=== PATIENT | male | born 1940 | race Hispanic/Latino ===

== ENCOUNTER 2019-09-24 13:31 | Emergency (ER) | payer MEDICARE ==
--- NOTE | 2019-09-24 14:19 | Event Note ---
ED Screening Note Date of service: 09/24/19 Time: 14:18 ED Screening Note: 79 y/o male comes in for dyspnea. Hx/o COPD. Still smoking. This initial assessment/diagnostic orders/clinical plan/treatment(s) is/are subject to change based on patients health status, clinical progression and re-assessment by fellow clinical providers in the ED. Further treatment and workup at subsequent clinical providers discretion. Patient/guardian urged not to elope from the ED as their condition may be serious if not clinically assessed and managed. Initial orders include:
--- NOTE | 2019-09-24 15:15 | XRay Report ---
CHEST 2 VIEWS INDICATION / CLINICAL INFORMATION: dyspnea. COMPARISON: Chest x-ray 09/25/2017 FINDINGS: SUPPORT DEVICES: None. HEART / MEDIASTINUM: No significant abnormality. LUNGS / PLEURA: Stable hyperexpansion without focal consolidation or pleural effusion. No pneumothora x. ADDITIONAL FINDINGS: No significant additional findings. IMPRESSION: 1. No acute findings. Signer Name: Deo Becker MD Signed: 09/24/2019 3:10 PM Workstation Name: [id number]
[2019-09-24 16:56] VITALS: BP 134/85
--- NOTE | 2019-09-24 17:03 | Emergency Department Report ---
- General Chief Complaint: Dyspnea/Respdistress Stated Complaint: CONGESTED/FEVER/JOEY Time Seen by Provider: 09/24/19 14:18 Source: patient Mode of arrival: Ambulatory Limitations: No Limitations - History of Present Illness Initial Comments: Patient is a 79-year-old male who has a history of COPD who has had a productive cough for the last 2 weeks. Patient's states that his primary care physician on his last visit did not refill his medications for his nebulizer machine. Patient was seen by his primary care physician was not given antibiotics. Patient's family member states that the patient's had fevers for the last 2 days. Cough is productive of clear to yellow sputum. Patient 7 difficult time resting secondary to the cough. Family denies nausea vomiting diarrhea next if sore throat. - Related Data Previous Rx's Medication Instructions Recorded Last Taken Type Budesonide [Pulmicort Respules] 0.5 mg IH Q12HRT 30 Days nebu 09/27/17 Unknown Rx HYDROcodone/APAP 5-325 [[place] 2 each PO Q6H PRN #10 tablet 09/27/17 Unknown Rx 5-325 mg TAB] Meclizine [Antivert] 25 mg PO TID PRN tablet 09/27/17 Unknown Rx Prednisone [predniSONE 10 mg 10 mg PO .TAPER #1 tab.ds.pk 09/27/17 Unknown Rx (6-Day Pack, 21 Tabs)] Verapamil ER [Calan SR] 180 mg PO QDAY #30 tablet 09/27/17 Unknown Rx levoFLOXacin [Levaquin TAB] 750 mg PO Q48HR 7 Days tablet 09/27/17 Unknown Rx ALBUTEROL Inhaler (OR & NICU) 2 puff IH QID PRN #1 inhalation 09/24/19 Unknown Rx [ProAir HFA Inhaler] ALBUTEROL NEB's [Proventil 0.083% 2.5 mg IH TID PRN #20 neb 09/24/19 Unknown Rx NEBS] DOXYCYCLINE Hyclate [Vibramycin 100 mg PO Q12HR #14 capsule 09/24/19 Unknown Rx CAP] guaiFENesin/CODEINE [Robitussin AC] 5 ml PO Q6HR PRN #100 oral.liqd 09/24/19 Unknown Rx predniSONE [Deltasone] 20 mg PO QDAY #5 tab 09/24/19 Unknown Rx Allergies Allergy/AdvReac Type Severity Reaction Status Date / Time acetaminophen AdvReac Nausea Verified 09/01/13 11:52 [From Darvocet-N 100] ibuprofen [From Motrin] AdvReac Nausea Verified 09/01/13 11:52 propoxyphene napsylate AdvReac Nausea Verified 09/01/13 11:52 [From Darvocet-N 100] tramadol AdvReac Nausea Verified 09/01/13 11:52 ED Review of Systems ROS: Stated complaint: CONGESTED/FEVER/JOEY Other details as noted in HPI Comment: All other systems reviewed and negative ED Past Medical Hx - Past Medical History Previous Medical History?: Yes Hx Hypertension: Yes Hx Heart Attack/AMI: Yes Hx COPD: Yes Hx HIV: No Additional medical history: coronary artery disease,concusion 2017 - Surgical History Past Surgical History?: Yes Hx Coronary Stent: Yes Additional Surgical History: angioplasty. stent in neck. carotidendarterectomy - Social History Smoking Status: Current Every Day Smoker Substance Use Type: None - Medications Home Medications: Home Medications Medication Instructions Recorded Confirmed Last Taken Type Budesonide [Pulmicort Respules] 0.5 mg IH Q12HRT 30 Days nebu 09/27/17 Unknown Rx HYDROcodone/APAP 5-325 [[place] 2 each PO Q6H PRN #10 tablet 09/27/17 Unknown Rx 5-325 mg TAB] Meclizine [Antivert] 25 mg PO TID PRN tablet 09/27/17 Unknown Rx Prednisone [predniSONE 10 mg 10 mg PO .TAPER #1 tab.ds.pk 09/27/17 Unknown Rx (6-Day Pack, 21 Tabs)] Verapamil ER [Calan SR] 180 mg PO QDAY #30 tablet 09/27/17 Unknown Rx levoFLOXacin [Levaquin TAB] 750 mg PO Q48HR 7 Days tablet 09/27/17 Unknown Rx ALBUTEROL Inhaler (OR & NICU) 2 puff IH QID PRN #1 inhalation 09/24/19 Unknown Rx [ProAir HFA Inhaler] ALBUTEROL NEB's [Proventil 0.083% 2.5 mg IH TID PRN #20 neb 09/24/19 Unknown Rx NEBS] DOXYCYCLINE Hyclate [Vibramycin 100 mg PO Q12HR #14 capsule 09/24/19 Unknown Rx CAP] guaiFENesin/CODEINE [Robitussin AC] 5 ml PO Q6HR PRN #100 oral.liqd 09/24/19 Unknown Rx predniSONE [Deltasone] 20 mg PO QDAY #5 tab 09/24/19 Unknown Rx ED Physical Exam - General Limitations: No Limitations General appearance: alert, in no apparent distress - Head Head exam: Present: atraumatic, normocephalic - Eye Eye exam: Present: normal appearance - ENT ENT exam: Present: mucous membranes moist - Neck Neck exam: Present: normal inspection - Respiratory Respiratory exam: Present: rhonchi. Absent: normal lung sounds bilaterally, respiratory distress, wheezes, rales, stridor - Cardiovascular Cardiovascular Exam: Present: regular rate, normal rhythm, normal heart sounds. Absent: systolic murmur, diastolic murmur, rubs, gallop - GI/Abdominal GI/Abdominal exam: Present: soft, normal bowel sounds. Absent: distended, tenderness, guarding, rebound - Rectal Rectal exam: Present: deferred - Extremities Exam Extremities exam: Present: normal inspection - Back Exam Back exam: Present: normal inspection - Neurological Exam Neurological exam: Present: alert, oriented X3 - Psychiatric Psychiatric exam: Present: normal affect, normal mood - Skin Skin exam: Present: warm, dry, intact, normal color. Absent: rash ED Course Vital Signs 09/24/19 09/24/19 13:35 16:56 Temperature 97.8 F 98.8 F Pulse Rate 67 69 Respiratory 19 18 Rate Blood Pressure 141/89 Blood Pressure 134/85 [Left] O2 Sat by Pulse 97 98 Oximetry ED Medical Decision Making - Radiology Data CHEST 2 VIEWS INDICATION / CLINICAL INFORMATION: dyspnea. COMPARISON: Chest x-ray 09/25/2017 FINDINGS: SUPPORT DEVICES: None. HEART / MEDIASTINUM: No significant abnormality. LUNGS / PLEURA: Stable hyperexpansion without focal consolidation or pleural effusion. No pneumothorax. ADDITIONAL FINDINGS: No significant additional findings. IMPRESSION: 1. No acute findings. Signer Name: Deo Becker MD Signed: 09/24/2019 3:10 PM Workstation Name: [id number] - Medical Decision Making Patient is a 79-year-old male with a history of COPD. Patient has had a productive cough for over 2 weeks as well as subjective fevers. Patient be started on doxycycline the patient also have his inhaler and nebulizers medications refilled. Patient started on a short course of antibiotics. Critical care attestation.: If time is entered above; I have spent that time in minutes in the direct care of this critically ill patient, excluding procedure time. ED Disposition Clinical Impression: Acute exacerbation of chronic bronchitis Disposition: TO HOME OR SELFCARE Is pt being admited?: No Does the pt Need Aspirin: No Condition: Stable Instructions: Chronic Bronchitis (ED) Referrals: PRIMARY CARE, [Primary Care Provider] - 3-5 Days Time of Disposition: 17:02
== END 2019-09-24 17:23 | disposition home or self-care (01) ==
LOC: ED 13:31
DX: J42 Unspecified chronic bronchitis (principal); I10 Essential (primary) hypertension; I25.2 Old myocardial infarction; I25.10 Atherosclerotic heart disease of native coronary artery without angina pectoris; F17.200 Nicotine dependence, unspecified, uncomplicated; Z95.5 Presence of coronary angioplasty implant and graft; Z79.899 Other long term (current) drug therapy; Z88.8 Allergy status to other drugs, medicaments and biological substances
CPT/HCPCS: 71046

== ENCOUNTER 2019-11-17 16:40 | Emergency (ER) | payer MEDICARE ==
[2019-11-17] MEDS ORDERED: methylPREDNISolone Sod Succinate 125 MG/2 ML INJ IV ONE ×2 (17:45→22:08)
[2019-11-17] MEDS ORDERED: ALBUTEROL 2.5 MG/3 ML NEBU IH ONE ×2 (17:45→20:50)
[2019-11-17] MEDS ORDERED: IPRATROPIUM 0.02% NEBU 2.5 ML IH ONE ×2 (17:45→20:50)
--- NOTE | 2019-11-17 17:45 | Event Note ---
ED Screening Note ED Screening Note: pt presents for productive cough 4-5 days +chest congestion +subjective fever, states it was 101 rhinorrhea +sob PMHx COPD, HTN still smoking This initial assessment/diagnostic orders/clinical plan/treatment(s) is/are subject to change based on patients health status, clinical progression and re-assessment by fellow clinical providers in the ED. Further treatment and workup at subsequent clinical providers discretion. Patient/guardian urged not to elope from the ED as their condition may be serious if not clinically assessed and managed. Initial orders include: CXR, labs, neb tx, steroids
--- NOTE | 2019-11-17 18:07 | XRay Report ---
CHEST 2 VIEWS INDICATION / CLINICAL INFORMATION: productive cough, fever, sob. COMPARISON: Chest x-ray 09/24/2019 FINDINGS: SUPPORT DEVICES: None. HEART / MEDIASTINUM: No significant abnormality. LUNGS / PLEURA: Moderate COPD, unchanged. No significant pulmonary or pleural abnormality. No pneumot horax. ADDITIONAL FINDINGS: No significant additional findings. IMPRESSION: 1. No acute findings. Signer Name: Isreal Kincaid MD Signed: 11/17/2019 6:03 PM Workstation Name: [id number]
[2019-11-17 18:41] LABS: Hematocrit 44.3 % (35.5-45.6); Hemoglobin 15.1 gm/dl (11.8-15.2); Mean Corpuscular HGB Conc 34 % (32-34); Mean Corpuscular Volume 89 fl (84-94); Platelet Count 212 K/mm3 (140-440)
[2019-11-17 19:06] LABS: Albumin 4.2 g/dL (3.9-5)
[2019-11-17 20:46] VITALS: BP 115/80
[2019-11-17] MEDS ORDERED: methylPREDNISolone Sod Succinate 125 MG/2 ML INJ ONE (20:50)
[2019-11-17] MEDS ORDERED: FUROSEMIDE 20 MG/2 ML INJ IV ONE (22:08)
[2019-11-17 22:10] LABS: Eosinophils % (Manual) 0 % (0.0-4.3); RBC Morphology Normal; Total Cells Counted 100
[2019-11-17 22:11] LABS: Platelet Estimate Consistent w Auto
--- NOTE | 2019-11-17 22:18 | Emergency Department Report ---
HPI - General Chief Complaint: Upper Respiratory Infection Time Seen by Provider: 11/17/19 17:42 - HPI HPI: 79-year-old male presents to the emergency department with complaint of a 4 to five-day history of a cough, chest congestion, subjective fever and some shortness of breath. Patient has a past medical history of COPD, coronary artery disease, carotid stenosis, hypertension. He is a tobacco smoker. He is not oxygen dependent at home. He has a primary care physician but has not seen them regarding his symptoms. No recent travel or sick contacts at home. He denies any chest pain, lower extremity swelling, nausea, vomiting or diaph oresis. Patient has been using some nebulizer treatments at home with some transient relief. ED Past Medical Hx - Past Medical History Previous Medical History?: Yes Hx Hypertension: Yes Hx Heart Attack/AMI: Yes Hx COPD: Yes Hx HIV: No Additional medical history: coronary artery disease,concusion 2016 - Surgical History Past Surgical History?: Yes Hx Coronary Stent: Yes Additional Surgical History: angioplasty. stent in neck. carotidendarterectomy - Social History Smoking Status: Current Every Day Smoker Substance Use Type: None - Medications Home Medications: Home Medications Medication Instructions Recorded Confirmed Last Taken Type Budesonide [Pulmicort Respules] 0.5 mg IH Q12HRT 30 Days nebu 09/27/17 Unknown Rx HYDROcodone/APAP 5-325 [[place] 2 each PO Q6H PRN #10 tablet 09/27/17 Unknown Rx 5-325 mg TAB] Meclizine [Antivert] 25 mg PO TID PRN tablet 09/27/17 Unknown Rx Prednisone [predniSONE 10 mg 10 mg PO .TAPER #1 tab.ds.pk 09/27/17 Unknown Rx (6-Day Pack, 21 Tabs)] Verapamil ER [Calan SR] 180 mg PO QDAY #30 tablet 09/27/17 Unknown Rx levoFLOXacin [Levaquin TAB] 750 mg PO Q48HR 7 Days tablet 09/27/17 Unknown Rx DOXYCYCLINE Hyclate [Vibramycin 100 mg PO Q12HR #14 capsule 09/24/19 Unknown Rx CAP] guaiFENesin/CODEINE [Robitussin AC] 5 ml PO Q6HR PRN #100 oral.liqd 09/24/19 Unknown Rx ALBUTEROL NEB's [Proventil 0.083% 2.5 mg IH TID PRN #20 neb 11/17/19 Unknown Rx NEBS] Albuterol INH(or & Nicu Only) 2 puff IH QID PRN #1 inhalation 11/17/19 Unknown Rx [ProAir HFA Inhaler] predniSONE [Deltasone] 20 mg PO QDAY #4 tab 11/17/19 Unknown Rx ED Review of Systems ROS: Stated complaint: FEVER,CONGESTION,COUGH,SINUS Other details as noted in HPI Comment: All other systems reviewed and negative Constitutional: denies: chills, fever Eyes: denies: eye pain, vision change ENT: congestion. denies: ear pain, throat pain Respiratory: cough, shortness of breath Cardiovascular: denies: chest pain, edema Gastrointestinal: denies: abdominal pain, vomiting Genitourinary: denies: dysuria, discharge Musculoskeletal: denies: back pain, arthralgia Skin: denies: rash, lesions Neurological: denies: headache, weakness Physical Exam - Physical Exam Vital Signs: Vital Signs 11/17/19 11/17/19 11/17/19 17:43 20:44 20:52 Temperature 99.8 F H 99 F Pulse Rate 81 85 Pulse Rate [ 88 Throughout] Respiratory 20 20 Rate Respiratory 22 Rate [ Throughout] Blood Pressure 153/87 Blood Pressure 115/80 [Right] O2 Sat by Pulse 93 92 Oximetry Physical Exam: GENERAL: The patient is well-developed well-nourished. HEENT: Normocephalic. Atraumatic. Patient has moist mucous membranes. EYES: Extraocular motions are intact. NECK: Supple. Trachea is midline. CHEST/LUNGS: There is some wheezing throughout the chest. No tachypnea or accessory muscle use. There is no respiratory distress noted. HEART/CARDIOVASCULAR: Regular. There is no tachycardia. There is no murmur. ABDOMEN: Abdomen is soft, nontender. Patient has normal bowel sounds. There is no abdominal distention. SKIN:Skin is warm and dry. . NEURO: The patient is awake, alert, and oriented. The patient is cooperative. The patient has no focal neurologic deficits. Normal speech. MUSCULOSKELETAL: There is no tenderness or deformity. There is no limitation range of motion. There is no evidence of acute injury. ED Course Vital Signs 11/17/19 11/17/19 11/17/19 17:43 20:44 20:52 Temperature 99.8 F H 99 F Pulse Rate 81 85 Pulse Rate [ 88 Throughout] Respiratory 20 20 Rate Respiratory 22 Rate [ Throughout] Blood Pressure 153/87 Blood Pressure 115/80 [Right] O2 Sat by Pulse 93 92 Oximetry ED Medical Decision Making - Lab Data Result diagrams: 11/17/19 18:01 11/17/19 18:01 - Radiology Data Radiology results: image reviewed interpreted by me: Chest x-ray does not show any pleural effusions, pneumonia, pneumothorax, focal consolidation, or any other acute process. - Medical Decision Making This patient presents to the emergency department with a 4 to five-day history of some shortness of breath, coughing, wheezing. He does have a history of COPD. Subjective fever but afebrile here. Chest x-ray does not show any pneumonia, pleural effusions, pneumothorax, focal consolidation, or any other acute process. The patient's labs are mostly unremarkable except for a elevated BNP level. The patient does not have any history of congestive heart failure. Chest x-ray did not show any pleural effusions and the patient does not have any lower extremity swelling. However, for this abnormal lab, the patient's information has been sent over to [facility] cardiology for close outpatient follow-up. I believe it may be elevated secondary to his history of abdominal aortic aneurysm. Most of his symptoms appear consistent with a viral URI, bronchitis, or an exacerbation of his COPD. The patient is not in any respiratory distress and appears safe for discharge home at this time. He will be given an albuterol inhaler, a refill of his nebulizer medication, and a few days of steroids. The patient is also been instructed to follow-up with his primary care physician and to return to the emergency Department with any worsening of his symptoms or any acute distress. - Differential Diagnosis COPD, CHF, pneumonia, influenza, viral URI Critical Care Time: No Critical care attestation.: If time is entered above; I have spent that time in minutes in the direct care of this critically ill patient, excluding procedure time. ED Disposition Clinical Impression: COPD exacerbation, Viral URI Disposition: OP ADMIT IP TO THIS HOSP Is pt being admited?: Yes Condition: Stable Instructions: Upper Respiratory Infection (ED), Chronic Obstructive Pulmonary Disease (ED) Additional Instructions: Please follow up with your primary care physician in the next 2 days. Return to the emergency Department with any worsening of your symptoms or any acute distress. I have sent your contact information over to [facility] heart cardiology and somewhat should be contacting you shortly for close outpatient follow-up. Prescriptions: predniSONE [Deltasone] 20 mg PO QDAY #4 tab Albuterol INH(or & Nicu Only) [ProAir HFA Inhaler] 2 puff IH QID PRN #1 inhalation PRN Reason: Shortness Of Breath ALBUTEROL NEB's [Proventil 0.083% NEBS] 2.5 mg IH TID PRN #20 neb PRN Reason: Wheezing Referrals: PRIMARY CARE, [Referring] - 2-3 Days [facility] [Provider Group] - 3-5 Days Time of Disposition: 22:28
== END 2019-11-17 22:40 | disposition admitted as inpatient to this hospital (09) ==
LOC: ED 16:40
DX: J44.1 Chronic obstructive pulmonary disease with (acute) exacerbation (principal); J06.9 Acute upper respiratory infection, unspecified; I10 Essential (primary) hypertension; I25.2 Old myocardial infarction; F17.200 Nicotine dependence, unspecified, uncomplicated; Z95.5 Presence of coronary angioplasty implant and graft; Z79.899 Other long term (current) drug therapy; Z88.8 Allergy status to other drugs, medicaments and biological substances
CPT/HCPCS: 36415; 71046; 80053; 83880; 85007; 85025; 94640; 96374; 99283; J2930; 94644

== ENCOUNTER 2022-01-17 19:21 | Emergency (ER) | payer MEDICARE ==
--- NOTE | 2022-01-17 21:18 | XRay Report ---
CHEST 2 VIEWS INDICATION / CLINICAL INFORMATION: chest pain. COMPARISON: 11/17/2019 FINDINGS: SUPPORT DEVICES: None. HEART / MEDIASTINUM: No significant abnormality. LUNGS / PLEURA: Lungs are hyperexpanded. Mild interstitial edema. There is a small opacity in the rig ht upper lobe overlying the right posterior sixth rib. No pneumothorax. ADDITIONAL FINDINGS: No significant additional findings. IMPRESSION: 1. Small opacity in the right upper lobe is nonspecific. A nonemergent chest CT can be performed for further evaluation. 2. Mild interstitial edema. 3. COPD. Signer Name: Deon Thomas MD Signed: 01/17/2022 9:14 PM Workstation Name: [id number]
[2022-01-17 21:55] LABS: Hematocrit 44.6 % (35.5-45.6); Hemoglobin 14.6 gm/dl (11.8-15.2); Mean Corpuscular HGB Conc 33 % (32-34); Mean Corpuscular Volume 89 fl (84-94); Platelet Count 298 K/mm3 (140-440); Red Cell Distribution Width 13.3 % (13.2-15.2)
[2022-01-17 22:22] LABS: INR 0.97 (0.87-1.13)
[2022-01-17 22:23] LABS: Partial Thromboplastin Time 33.5 Sec. (24.2-36.6)
[2022-01-17 22:28] LABS: Alanine Aminotransferase 7 units/L (7-56); Albumin 4.2 g/dL (3.9-5); BUN/Creatinine Ratio 12; Blood Urea Nitrogen 16 mg/dL (9-20); Calcium 8.8 mg/dL (8.4-10.2); Hemolysis Index 33
--- NOTE | 2022-01-17 23:09 | Emergency Department Report ---
ED General Adult HPI - General Chief complaint: Chest Pain Stated complaint: COLD SX Time Seen by Provider: 01/17/22 22:48 Source: patient Mode of arrival: Ambulatory Limitations: No Limitations - History of Present Illness Initial comments: Patient is 81 years old male with history of hypertension. Patient presented to the ER complaining of cold like symptoms. Patient stated that for the last 4 days he started to have runny nose cough and congestion. Patient stated that he started having some chest pain when he started coughing. He describes chest pain as sharp, diffuse. Patient stated that the chest pain is only, when he started coughing. Patient denied any tightness in his chest. He also denied any fever or chills. No shortness of breath. Patient stated that he is vaccinated for Covid x3 shots. -: days(s) (4) Location: chest Severity scale (0 -10): 3 Quality: sharp Consistency: intermittent Improves with: cold therapy Associated Symptoms: denies other symptoms, chest pain, cough - Related Data Previous Rx's Medication Instructions Recorded Last Taken Type Budesonide [Pulmicort Respules] 0.5 mg IH Q12HRT 30 Days nebu 09/27/17 Unknown Rx HYDROcodone/APAP 5-325 [[place] 2 each PO Q6H PRN #10 tablet 09/27/17 Unknown Rx 5-325 mg TAB] Meclizine [Antivert] 25 mg PO TID PRN tablet 09/27/17 Unknown Rx Prednisone [predniSONE 10 mg 10 mg PO .TAPER #1 tab.ds.pk 09/27/17 Unknown Rx (6-Day Pack, 21 Tabs)] Verapamil ER [Calan SR] 180 mg PO QDAY #30 tablet 09/27/17 Unknown Rx levoFLOXacin [Levaquin TAB] 750 mg PO Q48HR 7 Days tablet 09/27/17 Unknown Rx DOXYCYCLINE Hyclate [Vibramycin 100 mg PO Q12HR #14 capsule 09/24/19 Unknown Rx CAP] guaiFENesin/CODEINE [Robitussin AC] 5 ml PO Q6HR PRN #100 oral.liqd 09/24/19 Unknown Rx ALBUTEROL NEB's [Proventil 0.083% 2.5 mg IH TID PRN #20 neb 11/17/19 Unknown Rx NEBS] Albuterol Mdi (or & Nicu Only) 2 puff IH QID PRN #1 inhalation 11/17/19 Unknown Rx [ProAir HFA Inhaler] predniSONE [Deltasone] 20 mg PO QDAY #4 tab 11/17/19 Unknown Rx Allergies Allergy/AdvReac Type Severity Reaction Status Date / Time acetaminophen AdvReac Nausea Verified 01/17/22 20:27 [From Darvocet-N 100] ibuprofen [From Motrin] AdvReac Nausea Verified 01/17/22 20:27 propoxyphene napsylate AdvReac Nausea Verified 01/17/22 20:27 [From Darvocet-N 100] tramadol AdvReac Nausea Verified 01/17/22 20:27 ED Review of Systems ROS: Stated complaint: COLD SX Other details as noted in HPI Comment: All other systems reviewed and negative Constitutional: denies: chills, fever ENT: congestion Respiratory: cough. denies: orthopnea, shortness of breath, SOB with exertion, SOB at rest, stridor, wheezing Cardiovascular: chest pain. denies: palpitations, dyspnea on exertion, orthopnea Gastrointestinal: denies: abdominal pain, nausea, vomiting Musculoskeletal: denies: back pain Neurological: denies: headache, weakness, numbness, paresthesias, confusion, abnormal gait ED Past Medical Hx - Past Medical History Previous Medical History?: Yes Hx Hypertension: Yes Hx Heart Attack/AMI: Yes Hx COPD: Yes Hx HIV: No Additional medical history: coronary artery disease,concusion 2017, aneurysms - Surgical History Past Surgical History?: Yes Hx Coronary Stent: Yes Additional Surgical History: angioplasty. stent in neck. carotidendarterectomy - Social History Smoking Status: Current Every Day Smoker Substance Use Type: None - Medications Home Medications: Home Medications Medication Instructions Recorded Confirmed Last Taken Type Budesonide [Pulmicort Respules] 0.5 mg IH Q12HRT 30 Days nebu 09/27/17 Unknown Rx HYDROcodone/APAP 5-325 [[place] 2 each PO Q6H PRN #10 tablet 09/27/17 Unknown Rx 5-325 mg TAB] Meclizine [Antivert] 25 mg PO TID PRN tablet 09/27/17 Unknown Rx Prednisone [predniSONE 10 mg 10 mg PO .TAPER #1 tab.ds.pk 09/27/17 Unknown Rx (6-Day Pack, 21 Tabs)] Verapamil ER [Calan SR] 180 mg PO QDAY #30 tablet 09/27/17 Unknown Rx levoFLOXacin [Levaquin TAB] 750 mg PO Q48HR 7 Days tablet 09/27/17 Unknown Rx DOXYCYCLINE Hyclate [Vibramycin 100 mg PO Q12HR #14 capsule 09/24/19 Unknown Rx CAP] guaiFENesin/CODEINE [Robitussin AC] 5 ml PO Q6HR PRN #100 oral.liqd 09/24/19 Unknown Rx ALBUTEROL NEB's [Proventil 0.083% 2.5 mg IH TID PRN #20 neb 11/17/19 Unknown Rx NEBS] Albuterol Mdi (or & Nicu Only) 2 puff IH QID PRN #1 inhalation 11/17/19 Unknown Rx [ProAir HFA Inhaler] predniSONE [Deltasone] 20 mg PO QDAY #4 tab 11/17/19 Unknown Rx ED Physical Exam - General Limitations: No Limitations General appearance: alert, in no apparent distress - Head Head exam: Present: atraumatic, normocephalic, normal inspection - Eye Eye exam: Present: normal appearance - ENT ENT exam: Present: normal exam, normal orophraynx, mucous membranes moist - Neck Neck exam: Present: normal inspection, full ROM. Absent: tenderness, meningismus - Respiratory Respiratory exam: Present: normal lung sounds bilaterally. Absent: respiratory distress, wheezes, rales, rhonchi, stridor, chest wall tenderness, accessory muscle use, decreased breath sounds, prolonged expiratory - Cardiovascular Cardiovascular Exam: Present: regular rate, normal rhythm, normal heart sounds - GI/Abdominal GI/Abdominal exam: Present: soft, normal bowel sounds. Absent: distended, tenderness, guarding, rebound, rigid, organomegaly, mass, bruit, pulsatile mass, hernia - Extremities Exam Extremities exam: Present: normal inspection, full ROM, normal capillary refill. Absent: tenderness, pedal edema, joint swelling, calf tenderness - Back Exam Back exam: Present: normal inspection, full ROM. Absent: CVA tenderness (R), CVA tenderness (L) - Neurological Exam Neurological exam: Present: alert, oriented X3, CN II-XII intact, normal gait, reflexes normal - Psychiatric Psychiatric exam: Present: normal mood - Skin Skin exam: Present: warm, intact, normal color ED Course Vital Signs 01/17/22 20:24 Temperature 97.9 F Pulse Rate 65 Respiratory 18 Rate Blood Pressure 174/86 [Left] O2 Sat by Pulse 92 Oximetry ED Medical Decision Making - Lab Data Result diagrams: 01/17/22 21:16 01/17/22 21:16 - EKG Data -: EKG Interpreted by Me EKG shows normal: sinus rhythm Rate: normal - EKG Data Interpretation: no acute changes - Radiology Data Radiology results: report reviewed - Medical Decision Making Patient is 81 years old male with history of hypertension. Patient presented to the ER complaining of cold like symptoms. Patient stated that for the last 4 days he started to have runny nose cough and congestion. Patient stated that he started having some chest pain when he started coughing. He describes chest pain as sharp, diffuse. Patient stated that the chest pain is only, when he started coughing. Patient denied any tightness in his chest. He also denied any fever or chills. No shortness of breath. Patient stated that he is vaccinated for Covid x3 shots. EKG is unremarkable with no ST elevation. Chest x-ray showed no acute abnormality however the nonemergent finding has been noticed and patient info rmed about the need for nonemergent CT chest. Labs reviewed and is unremarkable except for significantly elevated BNP however I reviewed patient records from last time and he did have elevated BNP of more than 7000 before. So patient does have history of CHF however he is not on Lasix. I gave patient Lasix 60 mg p.o. in the ER and I write him a prescription for Lasix also he also get a prescription for Tessalon Perle and advised to follow-up with his primary care physician for further management. Patient also advised to return to the ER if he develop any new symptoms. Critical care attestation.: If time is entered above; I have spent that time in minutes in the direct care of this critically ill patient, excluding procedure time. ED Disposition Clinical Impression: CHF exacerbation, Upper respiratory infection Disposition: HOME / SELF CARE / HOMELESS Is pt being admited?: No Condition: Stable Instructions: Cough, Adult, [id number], Heart Failure Exacerbation Referrals: PRIMARY CARE, [Primary Care Provider] - 3-5 Days
[2022-01-18] MEDS ORDERED: FUROSEMIDE 20 MG TAB PO ONE (00:01)
[2022-01-18 00:37] VITALS: BP 157/91
--- NOTE | 2022-01-18 10:33 | Electrocardiograph Report ---
[facility] Test Date: 2022-01-17 Test Time: 20:28:47 Pat Name: MARTHA DOVER Department: Room: Gender: M Assistant Producer: DEQUAN : 1940 Requested By: PRASHANT APPIAH Order Number: [id number] Reading MD: Krystian Blevins Measurements Intervals [place]p Rate: 59 P: 88 LA: 152 QRS: 20 QRSD: 96 T: 81 QT: 452 QTc: 445 Interpretive Statements Sinus rhythm Ventricular premature complex Probable left atrial enlargement [id number] No previous ECG available for comparison Electronically Signed On 01-18-2022 10:33:12 EDT by Krystian Blevins
== END 2022-01-18 00:30 | disposition home or self-care (01) ==
LOC: ED 19:21
DX: I50.9 Heart failure, unspecified (principal); J06.9 Acute upper respiratory infection, unspecified; F17.200 Nicotine dependence, unspecified, uncomplicated; Z88.6 Allergy status to analgesic agent; Z88.5 Allergy status to narcotic agent
CPT/HCPCS: 36415; 71046; 80053; 83880; 84484; 85027; 85610; 85730; 93005; 99284

== ENCOUNTER 2022-06-19 13:28 | Inpatient (IN) | payer MEDICARE ==
[2022-06-19] MEDS ORDERED: dexAMETHasone 4 MG/ML VIAL IV ONE ×2 (13:39→16:00)
[2022-06-19 14:25] LABS: Hematocrit 45.6 % (35.5-45.6); Hemoglobin 14.8 gm/dl (11.8-15.2); Lymphocytes # (Auto) 1.3 K/mm3 (1.2-5.4); Lymphocytes % (Auto) 7.8 % (13.4-35.0); Mean Corpuscular HGB Conc 32 % (32-34); Mean Corpuscular Volume 88 fl (84-94); Monocytes # (Auto) 1.7 K/mm3 (0.0-0.8); Monocytes % (Auto) 10.2 % (0.0-7.3); Platelet Count 262 K/mm3 (140-440); Red Blood Count 5.21 M/mm3 (3.65-5.03)
[2022-06-19 14:43] LABS: Albumin 3.4 g/dL (3.9-5); Calcium 8.4 mg/dL (8.4-10.2)
--- NOTE | 2022-06-19 14:50 | XRay Report ---
CHEST 1 VIEW 06/19/2022 12:58 PM INDICATION / CLINICAL INFORMATION: sob- when in room. COMPARISON: 01/17/2022 FINDINGS: SUPPORT DEVICES: None. HEART / MEDIASTINUM: No significant abnormality. LUNGS / PLEURA: Mild interstitial prominence. No pneumothorax. ADDITIONAL FINDINGS: No significant additional findings. IMPRESSION: 1. Mild interstitial prominence which can be seen with atypical infectious process versus pulmonary e rui versus interstitial lung disease. Signer Name: Kieran Sprague DO Signed: 06/19/2022 2:45 PM Workstation Name: [id number]
[2022-06-19] MEDS ORDERED: cefTRIAXone/NS 1 GM/50 ML 1 GM/50 ML BAG IV ONE (15:14)
[2022-06-19] MEDS ORDERED: AZITHROMYCIN/NS 500 MG/250 ML 500 MG/250 ML BAG IV ONE (15:14)
--- NOTE | 2022-06-19 15:16 | Emergency Department Report ---
ED General Adult HPI - General Chief complaint: Dyspnea/Respdistress Stated complaint: POSITIVE COVID,SOB,ASTHMA PUI?: Yes Time Seen by Provider: 06/19/22 14:38 Source: patient, family, RN notes reviewed, old records reviewed Mode of arrival: Wheelchair Limitations: No Limitations, Physical Limitation, Other (Patient is hard of hearing) - History of Present Illness Initial comments: The patient was evaluated in the emergency department for symptoms described in the history of present illness. He/she was evaluated in the context of the global COVID-19 pandemic, which necessitated consideration that the patient might be at risk for infection with the virus that causes COVID-19. Institutional protocols and algorithms that pertain to the evaluation of patients at risk for COVID-19 are in a state of rapid change based on information released by regulatory bodies including the CDC and federal and state organizations. These policies and algorithms were followed during the patient's care in the emergency department. Please note that these policies, procedures and recommendations changed on a rapid basis. During the history and physical examination, had on complete personal protective equipment The patient is an 81-year-old gentleman who is COVID-19 vaccinated and boosted, with a past medical history of COPD, not home oxygen dependent, presenting today with symptomatic COVID, manifested by cough, wheezing, shortness of breath and mucus production. He is accompanied by a family member who assists with the history of present illness. The patient denies physical pain. Had a positive COVID test a few days ago -: Gradual, days(s) Severity scale (0 -10): 3 Consistency: constant Improves with: rest Worsens with: movement - Related Data Previous Rx's Medication Instructions Recorded Last Taken Type Budesonide [Pulmicort Respules] 0.5 mg IH Q12HRT 30 Days nebu 09/27/17 Unknown Rx HYDROcodone/APAP 5-325 [[place] 2 each PO Q6H PRN #10 tablet 09/27/17 Unknown Rx 5-325 mg TAB] Meclizine [Antivert] 25 mg PO TID PRN tablet 09/27/17 Unknown Rx Prednisone [predniSONE 10 mg 10 mg PO .TAPER #1 tab.ds.pk 09/27/17 Unknown Rx (6-Day Pack, 21 Tabs)] Verapamil ER [Calan SR] 180 mg PO QDAY #30 tablet 09/27/17 Unknown Rx levoFLOXacin [Levaquin TAB] 750 mg PO Q48HR 7 Days tablet 09/27/17 Unknown Rx DOXYCYCLINE Hyclate [Vibramycin 100 mg PO Q12HR #14 capsule 09/24/19 Unknown Rx CAP] guaiFENesin/CODEINE [Robitussin AC] 5 ml PO Q6HR PRN #100 oral.liqd 09/24/19 Unknown Rx ALBUTEROL NEB's [Proventil 0.083% 2.5 mg IH TID PRN #20 neb 11/17/19 Unknown Rx NEBS] Albuterol Mdi (or & Nicu Only) 2 puff IH QID PRN #1 inhalation 11/17/19 Unknown Rx [ProAir HFA Inhaler] predniSONE [Deltasone] 20 mg PO QDAY #4 tab 11/17/19 Unknown Rx Benzonatate [Tessalon Perles] 100 mg PO Q8HR #15 cap 01/18/22 Unknown Rx Furosemide [Lasix] 20 mg PO QDAY #30 tablet 01/18/22 Unknown Rx Allergies Allergy/AdvReac Type Severity Reaction Status Date / Time acetaminophen AdvReac Nausea Verified 01/17/22 20:27 [From Darvocet-N 100] ibuprofen [From Motrin] AdvReac Nausea Verified 01/17/22 20:27 propoxyphene napsylate AdvReac Nausea Verified 01/17/22 20:27 [From Darvocet-N 100] tramadol AdvReac Nausea Verified 01/17/22 20:27 ED Review of Systems ROS: Stated complaint: POSITIVE COVID,SOB,ASTHMA Other details as noted in HPI Constitutional: malaise, other. denies: fever ENT: congestion Respiratory: cough, shortness of breath Cardiovascular: denies: syncope Gastrointestinal: denies: abdominal pain Musculoskeletal: denies: back pain Neurological: weakness ED Past Medical Hx - Past Medical History Previous Medical History?: Yes Hx Hypertension: Yes Hx Heart Attack/AMI: Yes Hx COPD: Yes Hx HIV: No Additional medical history: coronary artery disease,concusion 2017, aneurysms - Surgical History Past Surgical History?: Yes Hx Coronary Stent: Yes Additional Surgical History: angioplasty. stent in neck. carotidendarterectomy - Social History Smoking Status: Current Every Day Smoker Substance Use Type: None - Medications Home Medications: Home Medications Medication Instructions Recorded Confirmed Last Taken Type Budesonide [Pulmicort Respules] 0.5 mg IH Q12HRT 30 Days nebu 09/27/17 Unknown Rx HYDROcodone/APAP 5-325 [[place] 2 each PO Q6H PRN #10 tablet 09/27/17 Unknown Rx 5-325 mg TAB] Meclizine [Antivert] 25 mg PO TID PRN tablet 09/27/17 Unknown Rx Prednisone [predniSONE 10 mg 10 mg PO .TAPER #1 tab.ds.pk 09/27/17 Unknown Rx (6-Day Pack, 21 Tabs)] Verapamil ER [Calan SR] 180 mg PO QDAY #30 tablet 09/27/17 Unknown Rx levoFLOXacin [Levaquin TAB] 750 mg PO Q48HR 7 Days tablet 09/27/17 Unknown Rx DOXYCYCLINE Hyclate [Vibramycin 100 mg PO Q12HR #14 capsule 09/24/19 Unknown Rx CAP] guaiFENesin/CODEINE [Robitussin AC] 5 ml PO Q6HR PRN #100 oral.liqd 09/24/19 Unknown Rx ALBUTEROL NEB's [Proventil 0.083% 2.5 mg IH TID PRN #20 neb 11/17/19 Unknown Rx NEBS] Albuterol Mdi (or & Nicu Only) 2 puff IH QID PRN #1 inhalation 11/17/19 Unknown Rx [ProAir HFA Inhaler] predniSONE [Deltasone] 20 mg PO QDAY #4 tab 11/17/19 Unknown Rx Benzonatate [Tessalon Perles] 100 mg PO Q8HR #15 cap 01/18/22 Unknown Rx Furosemide [Lasix] 20 mg PO QDAY #30 tablet 01/18/22 Unknown Rx ED Physical Exam - General Limitations: Physical Limitation, Other (Patient very hard of hearing) General appearance: alert, anxious - Head Head exam: Present: atraumatic, normocephalic - Eye Eye exam: Present: normal appearance, EOMI. Absent: nystagmus - ENT ENT exam: Present: normal exam, normal orophraynx, mucous membranes moist, normal external ear exam - Neck Neck exam: Present: normal inspection, full ROM. Absent: tenderness, meningismu s - Respiratory Respiratory exam: Present: accessory muscle use, other (Pulmonary auscultation not performed secondary to lack of disposable stethoscope). Absent: stridor - Cardiovascular Cardiovascular Exam: Present: regular rate, normal rhythm, other (Regular rate and rhythm appreciated on media monitor. Auscultation not performed secondary to lack of disposable stethoscope) - GI/Abdominal GI/Abdominal exam: Present: soft. Absent: distended, tenderness, guarding, rebound, rigid, pulsatile mass - Rectal Rectal exam: Present: deferred - Extremities Exam Extremities exam: Present: normal inspection, full ROM, other (2+ pulses noted in the bilateral upper and lower extremities. There is no palpable cord. negative Homans sign. Muscular compartments are soft. The pelvis is stable.). Absent: pedal edema, calf tenderness - Back Exam Back exam: Present: normal inspection. Absent: tenderness, CVA tenderness (R), CVA tenderness (L), paraspinal tenderness, vertebral tenderness - Neurological Exam Neurological exam: Present: alert, other (There is no facial droop. The tongue is midline. EOMI. 5/5 strength bilateral upper and lower extremities) - Psychiatric Psychiatric exam: Present: flat affect - Skin Skin exam: Present: warm, dry, intact, normal color. Absent: rash ED Course Vital Signs 06/19/22 06/19/22 06/19/22 13:35 14:34 14:36 Temperature 98.4 F Pulse Rate 83 79 Respiratory 22 24 31 H Rate Blood Pressure Blood Pressure 131/79 [Right] O2 Sat by Pulse 89 94 92 Oximetry 06/19/22 14:45 Temperature Pulse Rate 81 Respiratory 26 H Rate Blood Pressure 99/60 Blood Pressure [Right] O2 Sat by Pulse 91 Oximetry ED Medical Decision Making - Lab Data Result diagrams: 06/19/22 13:47 06/19/22 13:47 Vital Signs 06/19/22 06/19/22 06/19/22 13:35 14:34 14:36 Temperature 98.4 F Pulse Rate 83 79 Respiratory 22 24 31 H Rate Blood Pressure Blood Pressure 131/79 [Right] O2 Sat by Pulse 89 94 92 Oximetry 06/19/22 14:45 Temperature Pulse Rate 81 Respiratory 26 H Rate Blood Pressure 99/60 Blood Pressure [Right] O2 Sat by Pulse 91 Oximetry Lab Results 06/19/22 06/19/22 06/19/22 Range/Units 13:47 13:47 13:47 WBC 16.5 H (4.5-11.0) K/mm3 RBC 5.21 H (3.65-5.03) M/mm3 Hgb 14.8 (11.8-15.2) gm/dl Hct 45.6 (35.5-45.6) % MCV 88 (84-94) fl MCH 28 (28-32) pg MCHC 32 (32-34) % RDW 14.0 (13.2-15.2) % Plt Count 262 (140-440) K/mm3 Lymph % (Auto) 7.8 L (13.4-35.0) % [place] % (Auto) 10.2 H (0.0-7.3) % Eos % (Auto) 0.0 (0.0-4.3) % Baso % (Auto) 0.0 (0.0-1.8) % Lymph # (Auto) 1.3 (1.2-5.4) K/mm3 [place] # (Auto) 1.7 H (0.0-0.8) K/mm3 Eos # (Auto) 0.0 (0.0-0.4) K/mm3 Baso # (Auto) 0.0 (0.0-0.1) K/mm3 Seg Neutrophils % 82.0 H (40.0-70.0) % Seg Neutrophils # 13.5 H (1.8-7.7) K/mm3 Sodium 134 L (137-145) mmol/L Potassium 3.6 (3.6-5.0) mmol/L Chloride 94.9 L (98-107) mmol/L Carbon Dioxide 23 (22-30) mmol/L Anion Gap 20 mmol/L BUN 14 (9-20) mg/dL Creatinine 1.2 (0.8-1.3) mg/dL Estimated GFR 58 ml/min BUN/Creatinine Ratio 12 % Glucose 128 H (75-100) mg/dL Lactic Acid 1.30 (0.7-2.0) mmol/L Calcium 8.4 (8.4-10.2) mg/dL Total Bilirubin 0.70 (0.1-1.2) mg/dL AST 21 (5-40) units/L ALT 10 (7-56) units/L Alkaline Phosphatase 81 (35-129) units/L Troponin T 0.019 (0.00-0.029) ng/mL NT-Pro-B Natriuret Pep 4365 H (0-900) pg/mL Total Protein 7.5 (6.3-8.2) g/dL Albumin 3.4 L (3.9-5) g/dL Albumin/Globulin Ratio 0.8 % - Radiology Data Radiology results: pending, report reviewed, image reviewed CHEST 1 VIEW 06/19/2022 12:58 PM INDICATION / CLINICAL INFORMATION: sob- when in room. COMPARISON: 01/17/2022 FINDINGS: SUPPORT DEVICES: None. HEART / MEDIASTINUM: No significant abnormality. LUNGS / PLEURA: Mild interstitial prominence. No pneumothorax. ADDITIONAL FINDINGS: No significant additional findings. IMPRESSION: 1. Mild interstitial prominence which can be seen with atypical infectious process versus pulmonary edema versus interstitial lung disease. Signer Name: Kieran Sprague DO Signed: 06/19/2022 1:45 PM Workstation Name: [id number] Critical care attestation.: If time is entered above; I have spent that time in minutes in the direct care of this critically ill patient, excluding procedure time. ED Disposition Clinical Impression: Acute respiratory failure with hypoxia, COVID-19 Disposition: 09 ADMITTED INPATIENT Is pt being admited?: Yes Does the pt Need Aspirin: No Condition: Fair
--- NOTE | 2022-06-19 15:17 | History and Physical Report ---
History of Present Illness Chief complaint: I am coughing and I cannot breathe History of present illness: 81 YO Male with Vascular Dementia, Cerebral Atherosclerosis, HTN, CAD S/P Stent Placement, COPD, BPV, NC, Nicotine Dependence presents to ED for evaluation. Patient reports "I am coughing and I cannot breathe". Patient states that he has experienced shortness of breath, productive cough, weakness, fatigue, ma laise, diminished sense of smell, diminished sense of taste over the past 1 week with worsening symptoms over the past 2 days. Patient was tested for coronavirus and was found to have a positive coronavirus test 2 days ago. Patient states that he has been treated with home therapy but has failed and has experienced worsening symptoms. Patient transported to [facility] via private vehicle for further care and evaluation of the aforementioned symptoms. The patient was seen and evaluated in the emergency department. All lab and imaging studies reviewed. Patient found to have a pulse oximetry of 85% 6% on room air which is consistent with acute hypoxemic respiratory failure. Chest x-ray revealed bilateral pneumonia complicated by sepsis. Patient admitted to medical floor and initiated on sepsis protocol as well as coronavirus protocol. Patient denies fever, chills, chest pain, palpitation, skin rash, recent ill contacts. Prior admission on 09/26/2017 reviewed. All medication listed at time of admission has been reconciled. Advanced care planning conducted in ED. Past History Past Medical History: CAD, COPD, hypertension, other (See HPI) Past Surgical History: Other (Carotid endarterectomy, cardiac stent placement) Social history: . denies: smoking, alcohol abuse Medications and Allergies Allergies Allergy/AdvReac Type Severity Reaction Status Date / Time acetaminophen AdvReac Nausea Verified 01/17/22 20:27 [From Darvocet-N 100] ibuprofen [From Motrin] AdvReac Nausea Verified 01/17/22 20:27 propoxyphene napsylate AdvReac Nausea Verified 01/17/22 20:27 [From Darvocet-N 100] tramadol AdvReac Nausea Verified 01/17/22 20:27 Home Medications Medication Instructions Recorded Confirmed Last Taken Type Budesonide [Pulmicort Respules] 0.5 mg IH Q12HRT 30 Days nebu 09/27/17 Unknown Rx HYDROcodone/APAP 5-325 [[place] 2 each PO Q6H PRN #10 tablet 09/27/17 Unknown Rx 5-325 mg TAB] Meclizine [Antivert] 25 mg PO TID PRN tablet 09/27/17 Unknown Rx Prednisone [predniSONE 10 mg 10 mg PO .TAPER #1 tab.ds.pk 09/27/17 Unknown Rx (6-Day Pack, 21 Tabs)] Verapamil ER [Calan SR] 180 mg PO QDAY #30 tablet 09/27/17 Unknown Rx levoFLOXacin [Levaquin TAB] 750 mg PO Q48HR 7 Days tablet 09/27/17 Unknown Rx DOXYCYCLINE Hyclate [Vibramycin 100 mg PO Q12HR #14 capsule 09/24/19 Unknown Rx CAP] guaiFENesin/CODEINE [Robitussin AC] 5 ml PO Q6HR PRN #100 oral.liqd 09/24/19 Unknown Rx ALBUTEROL NEB's [Proventil 0.083% 2.5 mg IH TID PRN #20 neb 11/17/19 Unknown Rx NEBS] Albuterol Mdi (or & Nicu Only) 2 puff IH QID PRN #1 inhalation 11/17/19 Unknown Rx [ProAir HFA Inhaler] predniSONE [Deltasone] 20 mg PO QDAY #4 tab 11/17/19 Unknown Rx Benzonatate [Tessalon Perles] 100 mg PO Q8HR #15 cap 01/18/22 Unknown Rx Furosemide [Lasix] 20 mg PO QDAY #30 tablet 01/18/22 Unknown Rx Active Meds: Active Medications Azithromycin (Zithromax/Ns) 500 mg in 250 mls @ 250 mls/hr IV ONCE ONE; Protocol Stop: 06/19/22 16:13 Ceftriaxone Sodium (Rocephin/Ns 1 Gm/50 Ml) 1 gm in 50 mls @ 100 mls/hr IV ONCE ONE; Protocol Stop: 06/19/22 15:43 Review of Systems Constitutional: fatigue, weakness, no weight loss, no weight gain, no fever, no chills Ears, nose, mouth and throat: no ear pain, no ear discharge, no decreased hearing, no nasal congestion, no nasal discharge Cardiovascular: no chest pain, no orthopnea, no palpitations Respiratory: cough, cough with sputum, shortness of breath Gastrointestinal: no abdominal pain, no nausea, no vomiting, no diarrhea Genitourinary Male: no hematuria, no flank pain, no discharge, no urinary f requency, no urinary hesitancy Rectal: no pain, no incontinence, no bleeding Musculoskeletal: no neck stiffness, no neck pain, no shooting arm pain, no arm numbness/tingling, no low back pain Integumentary: no rash, no pruritis, no redness, no sores, no wounds, no blisters Neurological: no head injury, no transient paralysis, no parathesias, no tingling Psychiatric: no anxiety, no change in sleep habits, no sleep disturbances, no hypersomnia, no change in libido, no suicidal ideation Endocrine: no cold intolerance, no heat intolerance, no excessive thirst, no polydipsia, no polyuria, no excessive sweating Hematologic/Lymphatic: no easy bruising, no easy bleeding Allergic/Immunologic: no urticaria, no allergic rhinitis, no wheezing Exam - Constitutional Vitals: Temp Pulse Resp BP Pulse Ox 98.4 F 81 26 H 99/60 91 06/19/22 13:35 06/19/22 14:45 06/19/22 14:45 06/19/22 14:45 06/19/22 14:45 General appearance: Present: mild distress, cachectic - EENT Eyes: Present: PERRL ENT: hearing intact, clear oral mucosa - Neck Neck: Present: supple, normal ROM - Respiratory Respiratory effort: labored, accessory muscle use Respiratory: bilateral: diminished, rhonchi - Cardiovascular Heart Sounds: Present: S1 & S2. Absent: rub, click - Extremities Extremities: pulses symmetrical, No edema Peripheral Pulses: abnormal (Capillary refill greater than 3.5 seconds) - Abdominal General gastrointestinal: Present: soft, non-tender, non-distended, normal bowel sounds Male genitourinary: Present: normal - Integumentary Integumentary: Present: dry, clammy, decreased turgor - Musculoskeletal Musculoskeletal: generalized weakness - Psychiatric Psychiatric: appropriate mood/affect, intact judgment & insight - Neurologic Neurologic: CNII-XII intact, moves all extremities HEART Score - HEART Score Troponin: Troponin T 0.019 ng/mL (0.00-0.029) 06/19/22 13:47 Results - Labs CBC & Chem 7: 06/19/22 13:47 06/19/22 13:47 Labs: Abnormal lab results 06/19/22 06/19/22 Range/Units 13:47 13:47 WBC 16.5 H (4.5-11.0) K/mm3 RBC 5.21 H (3.65-5.03) M/mm3 Lymph % (Auto) 7.8 L (13.4-35.0) % [place] % (Auto) 10.2 H (0.0-7.3) % [place] # (Auto) 1.7 H (0.0-0.8) K/mm3 Seg Neutrophils % 82.0 H (40.0-70.0) % Seg Neutrophils # 13.5 H (1.8-7.7) K/mm3 Sodium 134 L (137-145) mmol/L Chloride 94.9 L (98-107) mmol/L Glucose 128 H (75-100) mg/dL NT-Pro-B Natriuret Pep 4365 H (0-900) pg/mL Albumin 3.4 L (3.9-5) g/dL Assessment and Plan - Patient Problems (1) Sepsis Current Visit: Yes Status: Acute Qualifiers: Acute respiratory failure type: with hypoxia Plan to address problem: Sepsis protocol: Chest x-ray, CBC, CMP, supplemental oxygen, pulse oximetry, IV fluid resuscitation therapy, IV antibiotic therapy, maintain mean arterial pressure greater than equal to 65, IV pressor support as clinically indicated, serial lactic acid level, blood culture. (2) Pneumonia Current Visit: Yes Status: Acute Plan to address problem: Chest x-ray, supplemental oxygen, pulse oximetry, nebulizer therapy, IV antibiotic therapy, (3) Acute hypoxemic respiratory failure Current Visit: Yes Status: Acute Plan to address problem: Chest x-ray, supplemental oxygen, pulse oximetry, nebulizer therapy, pulmonary toilet, noninvasive positive pressure ventilation as clinically indicated. (4) Coronavirus infection Current Visit: Yes Status: Acute Plan to address problem: Coronavirus protocol: Vitamin C therapy, vitamin D therapy, zinc therapy, IV antibiotic therapy, IV steroid therapy, prophylactic anticoagulation, infectious disease service consulted, prophylactic anticoagulation. (5) Hyponatremia syndrome Current Visit: Yes Status: Acute Plan to address problem: IV fluid resuscitation therapy, BMP, repeat BMP in a.m. (6) Nicotine dependence Current Visit: Yes Status: Acute Qualifiers: Nicotine product type: cigarettes Substance use status: in withdrawal Qualified Code(s): F17.213 - Nicotine dependence, cigarettes, with withdrawal Plan to address problem: Smoking cessation counseled, supportive care, behavior change counseled, +15 minutes. (7) Malnutrition Current Visit: Yes Status: Acute Qualifiers: Protein-calorie malnutrition severity: severe Plan to address problem: Increase protein intake, dietary supplementation (8) CHF (congestive heart failure) Current Visit: Yes Status: Acute Qualifiers: Heart failure chronicity: acute Plan to address problem: New onset CHF: BNP, thyroid panel, magnesium level, echocardiogram ordered and pending at time of admission, blood pressure control, strict I's/O, monitor urine output every shift, daily weight, afterload reduction, diuresis with Lasix. (9) DVT prophylaxis Current Visit: Yes Status: Acute Plan to address problem: SCD to bilateral lower extremities while in bed, prophylactic anticoagulation (10) Advance care planning Current Visit: Yes Status: Acute Plan to address problem: Disease education conducted, care plan discussed, diagnoses discussed, prognosis discussed, patient is full code. Patient acknowledges understanding and agreement with care plan, +30 minutes. (11) Preventative health care Current Visit: Yes Status: Acute Plan to address problem: Patient counseled regarding outpatient follow-up with primary care physician for all age and risk factor appropriate screening test, home safety, +30 minutes.
[2022-06-19] MEDS ORDERED: oxyCODONE /ACETAMINOPHEN 5-325MG TAB PO PRN (15:19)
[2022-06-19] MEDS ORDERED: HYDROmorphone 0.5 MG/0.5 ML INJ IV PRN ×2 (15:19)
[2022-06-19] MEDS ORDERED: ALBUTEROL 2.5 MG/3 ML NEBU IH PRN (15:19)
[2022-06-19] MEDS ORDERED: ACETAMINOPHEN 325 MG TAB PO PRN ×2 (15:19)
[2022-06-19] MEDS ORDERED: ONDANSETRON 4 MG/2 ML INJ IV PRN (15:19)
[2022-06-19] MEDS ORDERED: guaiFENesin/CODEINE 100-10MG ORAL LIQD 5 ML PO PRN (15:22)
[2022-06-19] MEDS ORDERED: MECLIZINE 25 MG TAB PO PRN (15:22)
[2022-06-19] MEDS ORDERED: cefTRIAXone/NS 2 GM/100 ML 2 GM/100 ML BAG IV SCH (16:00)
[2022-06-19 17:07] LABS: Free T4 (Free Thyroxine) 1.2 ng/dL (0.76-1.46)
[2022-06-19] MEDS: FUROSEMIDE 20 MG/2 ML INJ IV SCH (18:40)
[2022-06-19] MEDS ORDERED: ZINC SULFATE 220 MG CAP PO SCH (22:00)
[2022-06-19] MEDS: methylPREDNISolone Sod Succinate 40 MG/1 ML INJ IV SCH (22:05)
[2022-06-19] MEDS: ASCORBIC ACID 500 MG TAB PO SCH (22:05)
[2022-06-19] MEDS: BENZONATATE 100 MG CAP PO SCH (22:05)
[2022-06-19] MEDS: HEPARIN 5,000 UNIT/1 ML VIAL SUB-Q SCH (22:06)
[2022-06-20] MEDS: methylPREDNISolone Sod Succinate 40 MG/1 ML INJ IV SCH ×3 (05:35→22:01)
[2022-06-20] MEDS: BENZONATATE 100 MG CAP PO SCH ×3 (05:36→22:02)
[2022-06-20] MEDS: FUROSEMIDE 20 MG/2 ML INJ IV SCH ×2 (05:36→18:15)
[2022-06-20 06:22] LABS: Mucus,Urine FEW /HPF
[2022-06-20 06:34] LABS: Bilirubin,Urine Negative (Negative); Blood,Urine Negative (Negative); Color,Urine Yellow (Yellow)
[2022-06-20 06:35] LABS: Protein,Urine <15 mg/dL mg/dL (Negative); Urobilinogen,Urine < 2.0 mg/dL (<2.0)
[2022-06-20 08:28] LABS: Calcium 8.6 mg/dL (8.4-10.2)
[2022-06-20 08:32] LABS: Hematocrit 47.8 % (35.5-45.6); Hemoglobin 15.3 gm/dl (11.8-15.2); Mean Corpuscular HGB Conc 32 % (32-34); Mean Corpuscular Volume 89 fl (84-94); Platelet Count 266 K/mm3 (140-440)
[2022-06-20 09:47] LABS: Basophils % (Manual) 0 % (0.0-1.8); Eosinophils % (Manual) 0 % (0.0-4.3); Total Cells Counted 100
[2022-06-20 09:48] LABS: Giant Platelets Few; Platelet Estimate Consistent w Auto; Tear Drop Cells Few
--- NOTE | 2022-06-20 09:55 | Progress Note ---
Assessment and Plan Assessment and plan: -- Sepsis/present on admission Sepsis protocol: Chest x-ray, CBC, CMP, supplemental oxygen, pulse oximetry, IV fluid resuscitation therapy, IV antibiotic therapy, maintain mean arterial pressure greater than equal to 65, IV pressor support as clinically indicated, serial lactic acid level, blood culture. --Community-acquired Pneumonia; POA Chest x-ray, supplemental oxygen, pulse oximetry, nebulizer therapy, IV antibiotic therapy, --Acute hypoxemic respiratory failure Oxygen titrate O2 sats more than 90%, treat the underlying cause COVID-19 And pneumonia, home O2 evaluation prior to discharge, wean O2 as tolerated --Coronavirus infection/COVID-19 Isolation/PPE protocols Coronavirus protocol: Vitamin C therapy, vitamin D therapy, zinc therapy, IV antibiotic therapy, IV steroid therapy, prophylactic anticoagulation, infectious disease service consulted, prophylactic anticoagulation. --Elevated D-dimers; COVID-19/hypoxia/elevated D-dimers Check CTA chest to rule out PE Check lower extremity venous Doppler to rule out DVT --Hyponatremia syndrome IV fluid resuscitation therapy, BMP, repeat BMP in a.m. Monitor electrolytes --Nicotine dependence Smoking cessation counseled, supportive care, behavior change counseled, +15 minutes. -- Moderate protein calorie malnutrition Increase protein intake, dietary supplementation -- Acute diastolic CHF (congestive heart failure) EF 50 to 55% New onset CHF: BNP, thyroid panel, magnesium level, Follow echocardiogram LV function ejection fraction Diuretics, strict I's/O, monitor urine output every shift, daily weight, afterload reduction, diuresis with Lasix. --DVT prophylaxis SCD to bilateral lower extremities while in bed, prophylactic anticoagulation --Full CODE STATUS --Advance care planning Disease education conducted, care plan discussed, diagnoses discussed, prognosis discussed, patient is full code. Patient acknowledges understanding and agreement with c are plan, +30 minutes. -- Preventative health care Patient counseled regarding outpatient follow-up with primary care physician Patient advised to quit tobacco use, long-term sequelae and complications of ongoing tobacco discussed with the patient Advised nicotine patch, patient also advised highly nutritious food, multivitamin and supplementary nutrition Additional 32 minutes Closely monitor the patient and adjust the management as needed Plan of care reviewed with patient and nurse Consults and recommendations noted and appreciated Brief history and daily Hospital course; 81-year-old male patient with significant past medical history of CVA, Coronary artery disease status post PCI, COPD, vascular dementia was admitted through emergency room with worsening shortness of breath and history of positive COVID 19 infection. Patient D-dimers are elevated today, check CTA to rule out PE and bilateral venous Doppler lower extremity to rule out DVT/ 04/20/2022; follow CTA chest, lower extremity venous Doppler, ID following History Interval history: I have seen and examined the patient at bedside Patient's chart and medications reviewed Isolation precautions and PPE protocols strictly followed Vital signs noted Patient is on 2 L of nasal cannula oxygen Hospitalist Physical - Constitutional Vitals: Temp Pulse Resp BP Pulse Ox 98.9 F 50 L 18 156/80 100 06/20/22 04:36 06/20/22 04:36 06/20/22 04:36 06/20/22 04:36 06/20/22 04:36 General appearance: Present: mild distress, cachectic - EENT Eyes: Present: PERRL, EOM intact - Neck Neck: Present: supple, normal ROM - Respiratory Respiratory effort: normal Respiratory: bilateral: diminished, rhonchi, negative: rales, wheezing - Cardiovascular Rhythm: regular Heart Sounds: Present: S1 & S2 - Extremities Extremities: no ischemia, No edema - Abdominal General gastrointestinal: soft, non-tender, non-distended - Integumentary Integumentary: Present: clear, warm - Psychiatric Psychiatric: appropriate mood/affect, cooperative - Neurologic Neurologic: CNII-XII intact, moves all extremities HEART Score - HEART Score Troponin: Troponin T 0.019 ng/mL (0.00-0.029) 06/19/22 13:47 Results - Labs CBC & Chem 7: 06/20/22 06:26 06/20/22 06:26 Labs: Laboratory Last Values WBC 10.6 K/mm3 (4.5-11.0) 06/20/22 06:26 RBC 5.40 M/mm3 (3.65-5.03) H 06/20/22 06:26 Hgb 15.3 gm/dl (11.8-15.2) H 06/20/22 06:26 Hct 47.8 % (35.5-45.6) H 06/20/22 06:26 MCV 89 fl (84-94) 06/20/22 06:26 MCH 28 pg (28-32) 06/20/22 06:26 MCHC 32 % (32-34) 06/20/22 06:26 RDW 14.0 % (13.2-15.2) 06/20/22 06:26 Plt Count 266 K/mm3 (140-440) 06/20/22 06:26 Lymph % (Auto) 7.8 % (13.4-35.0) L 06/19/22 13:47 [place] % (Auto) 10.2 % (0.0-7.3) H 06/19/22 13:47 Eos % (Auto) 0.0 % (0.0-4.3) 06/19/22 13:47 Baso % (Auto) 0.0 % (0.0-1.8) 06/19/22 13:47 Lymph # (Auto) 1.3 K/mm3 (1.2-5.4) 06/19/22 13:47 [place] # (Auto) 1.7 K/mm3 (0.0-0.8) H 06/19/22 13:47 Eos # (Auto) 0.0 K/mm3 (0.0-0.4) 06/19/22 13:47 Baso # (Auto) 0.0 K/mm3 (0.0-0.1) 06/19/22 13:47 Add Manual Diff Complete 06/20/22 06:26 Total Counted 100 06/20/22 06:26 Seg Neutrophils % Appeals Analyst 06/20/22 06:26 Seg Neuts % (Manual) 92.0 % (40.0-70.0) H 06/20/22 06:26 Band Neutrophils % 0 % 06/20/22 06:26 Lymphocytes % (Manual) 3.0 % (13.4-35.0) L 06/20/22 06:26 Reactive Lymphs % (Man) 0 % 06/20/22 06:26 Monocytes % (Manual) 5.0 % (0.0-7.3) 06/20/22 06:26 Eosinophils % (Manual) 0 % (0.0-4.3) 06/20/22 06:26 Basophils % (Manual) 0 % (0.0-1.8) 06/20/22 06:26 Metamyelocytes % 0 % 06/20/22 06:26 Myelocytes % 0 % 06/20/22 06:26 Promyelocytes % 0 % 06/20/22 06:26 Blast Cells % 0 % 06/20/22 06:26 Nucleated RBC % Not Reportable 06/20/22 06:26 Seg Neutrophils # 13.5 K/mm3 (1.8-7.7) H 06/19/22 13:47 Seg Neutrophils # Man 9.8 K/mm3 (1.8-7.7) H 06/20/22 06:26 Band Neutrophils # 0.0 K/mm3 06/20/22 06:26 Lymphocytes # (Manual) 0.3 K/mm3 (1.2-5.4) L 06/20/22 06:26 Abs React Lymphs (Man) 0.0 K/mm3 06/20/22 06:26 Monocytes # (Manual) 0.5 K/mm3 (0.0-0.8) 06/20/22 06:26 Eosinophils # (Manual) 0.0 K/mm3 (0.0-0.4) 06/20/22 06:26 Basophils # (Manual) 0.0 K/mm3 (0.0-0.1) 06/20/22 06:26 Metamyelocytes # 0.0 K/mm3 06/20/22 06:26 Myelocytes # 0.0 K/mm3 06/20/22 06:26 Promyelocytes # 0.0 K/mm3 06/20/22 06:26 Blast Cells # 0.0 K/mm3 06/20/22 06:26 WBC Morphology Not Reportable 06/20/22 06:26 Hypersegmented Neuts Not Reportable 06/20/22 06:26 Hyposegmented Neuts Not Reportable 06/20/22 06:26 Hypogranular Neuts Not Reportable 06/20/22 06:26 Smudge Cells Not Reportable 06/20/22 06:26 Toxic Granulation Not Reportable 06/20/22 06:26 Toxic Vacuolation Not Reportable 06/20/22 06:26 Dohle Bodies Not Reportable 06/20/22 06:26 Pelger-Huet Anomaly Not Reportable 06/20/22 06:26 Tamiko Rods Not Reportable 06/20/22 06:26 Platelet Estimate Consistent w auto 06/20/22 06:26 Clumped Platelets Not Reportable 06/20/22 06:26 Plt Clumps, EDTA Not Reportable 06/20/22 06:26 Large Platelets Not Reportable 06/20/22 06:26 Giant Platelets Few 06/20/22 06:26 Platelet Satelliting Not Reportable 06/20/22 06:26 Plt Morphology Comment Not Reportable 06/20/22 06:26 RBC Morphology Not Reportable 06/20/22 06:26 Dimorphic RBCs Not Reportable 06/20/22 06:26 Polychromasia Not Reportable 06/20/22 06:26 Hypochromasia Not Reportable 06/20/22 06:26 Poikilocytosis Not Reportable 06/20/22 06:26 Anisocytosis Not Reportable 06/20/22 06:26 Microcytosis Not Reportable 06/20/22 06:26 Macrocytosis Not Reportable 06/20/22 06:26 Spherocytes Not Reportable 06/20/22 06:26 Pappenheimer Bodies Not Reportable 06/20/22 06:26 Sickle Cells Not Reportable 06/20/22 06:26 Target Cells Not Reportable 06/20/22 06:26 Tear Drop Cells Few 06/20/22 06:26 Ovalocytes Not Reportable 06/20/22 06:26 Helmet Cells Not Reportable 06/20/22 06:26 Beyer-Makoti Bodies Not Reportable 06/20/22 06:26 [place] Rings Not Reportable 06/20/22 06:26 [place] Cells Not Reportable 06/20/22 06:26 Bite Cells Not Reportable 06/20/22 06:26 Crenated Cell Not Reportable 06/20/22 06:26 Elliptocytes Not Reportable 06/20/22 06:26 Acanthocytes (Spur) 1+ 06/20/22 06:26 Rouleaux Not Reportable 06/20/22 06:26 Hemoglobin C Crystals Not Reportable 06/20/22 06:26 Schistocytes Not Reportable 06/20/22 06:26 Malaria parasites Not Reportable 06/20/22 06:26 Vivek Bodies Not Reportable 06/20/22 06:26 Hem Pathologist Commnt No 06/20/22 06:26 Sodium 139 mmol/L (137-145) 06/20/22 06:26 Potassium 5.2 mmol/L (3.6-5.0) H D 06/20/22 06:26 Chloride 97.5 mmol/L (98-107) L 06/20/22 06:26 Carbon Dioxide 30 mmol/L (22-30) D 06/20/22 06:26 Anion Gap 17 mmol/L 06/20/22 06:26 BUN 19 mg/dL (9-20) 06/20/22 06:26 Creatinine 1.2 mg/dL (0.8-1.3) 06/20/22 06:26 Estimated GFR 58 ml/min 06/20/22 06:26 BUN/Creatinine Ratio 16 % 06/20/22 06:26 Glucose 138 mg/dL (75-100) H 06/20/22 06:26 Lactic Acid 1.20 mmol/L (0.7-2.0) 06/19/22 23:20 Calcium 8.6 mg/dL (8.4-10.2) 06/20/22 06:26 Magnesium 2.00 mg/dL (1.7-2.3) 06/19/22 15:58 Total Bilirubin 0.70 mg/dL (0.1-1.2) 06/19/22 13:47 AST 21 units/L (5-40) 06/19/22 13:47 ALT 10 units/L (7-56) 06/19/22 13:47 Alkaline Phosphatase 81 units/L (35-129) 06/19/22 13:47 Troponin T 0.019 ng/mL (0.00-0.029) 06/19/22 13:47 NT-Pro-B Natriuret Pep 4365 pg/mL (0-900) H 06/19/22 13:47 Total Protein 7.5 g/dL (6.3-8.2) 06/19/22 13:47 Albumin 3.4 g/dL (3.9-5) L 06/19/22 13:47 Albumin/Globulin Ratio 0.8 % 06/19/22 13:47 TSH 1.310 mlU/mL (0.270-4.200) 06/19/22 15:58 Free T4 1.20 ng/dL (0.76-1.46) 06/19/22 15:58 Urine Color Yellow (Yellow) 06/20/22 05:45 Urine Turbidity Clear (Clear) 06/20/22 05:45 Urine pH 6.0 (5.0-7.0) 06/20/22 05:45 Ur Specific [place] 1.025 (1.003-1.030) 06/20/22 05:45 Urine Protein <15 mg/dl mg/dL (Negative) 06/20/22 05:45 Urine Glucose (UA) Negative mg/dL (Negative) 06/20/22 05:45 Urine Ketones Negative mg/dL (Negative) 06/20/22 05:45 Urine Blood Negative (Negative) 06/20/22 05:45 Urine Nitrite Negative (Negative) 06/20/22 05:45 Ur Reducing Substances Not Reportable 06/20/22 05:45 Urine Bilirubin Negative (Negative) 06/20/22 05:45 Urine Ictotest Not Reportable 06/20/22 05:45 Urine Urobilinogen < 2.0 mg/dL (<2.0) 06/20/22 05:45 Ur Leukocyte Esterase Negative (Negative) 06/20/22 05:45 Urine WBC (Auto) 1.0 /HPF (0.0-6.0) 06/20/22 05:45 Urine RBC (Auto) 1.0 /HPF (0.0-6.0) 06/20/22 05:45 U Epithel Cells (Auto) < 1.0 /HPF (0-13.0) 06/20/22 05:45 Urine Mucus Few /HPF 06/20/22 05:45 Blood Type A POSITIVE 06/19/22 15:58 Antibody Screen Negative 06/19/22 15:58 Microbiology: Microbiology 06/19/22 13:47 Peripheral/Venous Blood Culture - Preliminary Culture in Progress 06/19/22 13:47 Peripheral/Venous Blood Culture - Preliminary Culture in Progress [place]/IV: Voiding Method Urinal Active Medications - Current Medications Current Medications: Generic Name Dose Route Start Last Admin Trade Name Freq PRN Reason Stop Dose Admin Acetaminophen 650 mg 06/19/22 15:19 Acetaminophen 325 Mg Tab PO Q4H PRN Pain MILD(1-3)/Fever >100.5/KENDRICK Albuterol 2.5 mg 06/19/22 15:19 Albuterol 2.5 Mg/3 Ml Nebu IH Q4HRT PRN Shortness Of Breath Ascorbic Acid 500 mg 06/19/22 22:00 06/19/22 22:05 Ascorbic Acid 500 Mg Tab PO 500 mg BID HARMAN Administration Azithromycin 500 mg 06/20/22 18:00 Azithromycin 250 Mg Tab PO 06/23/22 18:59 QPM HARMAN Benzonatate 100 mg 06/19/22 22:00 06/20/22 05:36 Benzonatate 100 Mg Cap PO 100 mg Q8HR HARMAN Administration Cholecalciferol 1,000 unit 06/20/22 10:00 Cholecalciferol (Vit D3) 1000 Unit (25 Mcg) Tab PO QDAY [facility] Furosemide 20 mg 06/19/22 18:00 06/20/22 05:36 Furosemide 20 Mg/2 Ml Inj IV 20 mg 0600,1800 [facility] Administration Heparin Sodium (Porcine) 5,000 unit 06/19/22 22:00 06/19/22 22:06 Heparin 5,000 Unit/1 Ml Vial SUB-Q 5,000 unit Q12HR [facility] Administration Hydromorphone HCl 0.25 mg 06/19/22 15:19 Hydromorphone 0.5 Mg/0.5 Ml Inj IV Q4H PRN Pain, Moderate (4-6) Hydromorphone HCl 0.5 mg 06/19/22 15:19 Hydromorphone 0.5 Mg/0.5 Ml Inj IV Q23H PRN Pain , Severe (7-10) Ceftriaxone Sodium 2 gm in 100 mls @ 200 mls/hr 06/20/22 15:00 Rocephin/Ns 2 Gm/100 Ml IV Q24H [facility] Protocol Meclizine HCl 25 mg 06/19/22 15:22 Meclizine 25 Mg Tab PO TID PRN Vertigo Methylprednisolone Sodium Succinate 40 mg 06/19/22 22:00 06/20/22 05:35 Methylprednisolone Sod Succinate 40 Mg/1 Ml Inj IV 40 mg Q8HR [facility] Administration Ondansetron HCl 4 mg 06/19/22 15:19 Ondansetron 4 Mg/2 Ml Inj IV Q8H PRN Nausea And Vomiting Oxycodone/Acetaminophen 1 tab 06/19/22 15:19 Oxycodone /Acetaminophen 5-325mg Tab PO Q16H PRN Pain, Moderate (4-6) Pseudoephedrine/Acetam/Chlorphenir 5 ml 06/19/22 15:22 Guaifenesin/Codeine 100-10mg Oral Liqd 5 Ml PO Q6HR PRN Cough Sodium Chloride 10 ml 06/19/22 22:00 06/19/22 22:07 Sodium Chloride 0.9% 10 Ml Flush Syringe IV 10 ml BID HARMAN Administration Sodium Chloride 10 ml 06/19/22 15:19 Sodium Chloride 0.9% 10 Ml Flush Syringe IV PRN PRN LINE FLUSH Verapamil HCl 180 mg 06/20/22 10:00 Verapamil Er 180 Mg Tab PO QDAY HARMAN
--- NOTE | 2022-06-20 09:57 | Consultation ---
History of Present Illness - Reason for Consult Consult date: 06/20/22 COVID-19 Requesting physician: THEODORA OLIVAREZ - History of Present Illness The patient is a 81-year-old male with prior CVA, CAD s/p stent placement, COPD, vascular dementia, presented to the hospital with cough and shortness of breath. He tested positive for COVID-19 about 2 days prior to admission. Upon evaluation in the ED, hypoxic on room air. Chest x-ray showed bilateral pneumo luiza. Afebrile. Labs showed leukocytosis of 16.5. ID was consulted for additional evaluation. Currently, patient is on ceftriaxone, azithromycin, Solu-Medrol. Currently, he is feeling well, on nasal cannula. Review of Systems: General: no fevers,chills or rigors HEENT: no new visual disturbance Respiratory: No cough, sputum, hemoptysis or shortness of breath Cardiovascular: No chest pain, syncope Gastrointestinal: No nausea, vomiting or diarrhea Genitourinary: No dysuria or hematuria Musculoskeletal: No new or worsening neck pain or back pain Neurologic: No headaches, seizures Hematologic: No easy bruising or bleeding Endocrine: No night sweats or acute weight loss Skin: negative for rash, jaundice Psychiatric: No suicidal or homicidal ideation Past History Past Medical History: CAD, COPD, hypertension, other (See HPI) Past Surgical History: Other (Carotid endarterectomy, cardiac stent placement) Social history: . denies: smoking, alcohol abuse Medications and Allergies Allergies Allergy/AdvReac Type Severity Reaction Status Date / Time acetaminophen AdvReac Nausea Verified 01/17/22 20:27 [From Darvocet-N 100] ibuprofen [From Motrin] AdvReac Nausea Verified 01/17/22 20:27 propoxyphene napsylate AdvReac Nausea Verified 01/17/22 20:27 [From Darvocet-N 100] tramadol AdvReac Nausea Verified 01/17/22 20:27 Home Medications Medication Instructions Recorded Confirmed Last Taken Type Budesonide [Pulmicort Respules] 0.5 mg IH Q12HRT 30 Days nebu 09/27/17 06/20/22 Unknown Rx HYDROcodone/APAP 5-325 [[place] 2 each PO Q6H PRN #10 tablet 09/27/17 06/20/22 Unknown Rx 5-325 mg TAB] Meclizine [Antivert] 25 mg PO TID PRN tablet 09/27/17 06/20/22 Unknown Rx Prednisone [predniSONE 10 mg 10 mg PO .TAPER #1 tab.ds.pk 09/27/17 06/20/22 Unknown Rx (6-Day Pack, 21 Tabs)] Verapamil ER [Calan SR] 180 mg PO QDAY #30 tablet 09/27/17 06/20/22 Unknown Rx levoFLOXacin [Levaquin TAB] 750 mg PO Q48HR 7 Days tablet 09/27/17 06/20/22 Unknown Rx DOXYCYCLINE Hyclate [Vibramycin 100 mg PO Q12HR #14 capsule 09/24/19 06/20/22 Unknown Rx CAP] guaiFENesin/CODEINE [Robitussin AC] 5 ml PO Q6HR PRN #100 oral.liqd 09/24/19 06/20/22 Unknown Rx ALBUTEROL NEB's [Proventil 0.083% 2.5 mg IH TID PRN #20 neb 11/17/19 06/20/22 Unknown Rx NEBS] Albuterol Mdi (or & Nicu Only) 2 puff IH QID PRN #1 inhalation 11/17/19 06/20/22 Unknown Rx [ProAir HFA Inhaler] predniSONE [Deltasone] 20 mg PO QDAY #4 tab 11/17/19 06/20/22 Unknown Rx Benzonatate [Tessalon Perles] 100 mg PO Q8HR #15 cap 01/18/22 06/20/22 Unknown Rx Furosemide [Lasix] 20 mg PO QDAY #30 tablet 01/18/22 06/20/22 Unknown Rx Active Meds: Active Medications Acetaminophen (Acetaminophen 325 Mg Tab) 650 mg PO Q4H PRN PRN Reason: Pain MILD(1-3)/Fever >100.5/KENDRICK Albuterol (Albuterol 2.5 Mg/3 Ml Nebu) 2.5 mg IH Q4HRT PRN PRN Reason: Shortness Of Breath Ascorbic Acid (Ascorbic Acid 500 Mg Tab) 500 mg PO BID HARMAN Last Admin: 06/19/22 22:05 Dose: 500 mg Azithromycin (Azithromycin 250 Mg Tab) 500 mg PO QPM [facility]MAN Stop: 06/23/22 18:59 Benzonatate (Benzonatate 100 Mg Cap) 100 mg PO Q8HR HARMAN Last Admin: 06/20/22 05:36 Dose: 100 mg Cholecalciferol (Cholecalciferol (Vit D3) 1000 Unit (25 Mcg) Tab) 1,000 unit PO QDAY [facility] Furosemide (Furosemide 20 Mg/2 Ml Inj) 20 mg IV 0600,1800 [facility] Last Admin: 06/20/22 05:36 Dose: 20 mg Heparin Sodium (Porcine) (Heparin 5,000 Unit/1 Ml Vial) 5,000 unit SUB-Q Q12HR [facility] Last Admin: 06/19/22 22:06 Dose: 5,000 unit Hydromorphone HCl (Hydromorphone 0.5 Mg/0.5 Ml Inj) 0.25 mg IV Q4H PRN PRN Reason: Pain, Moderate (4-6) Hydromorphone HCl (Hydromorphone 0.5 Mg/0.5 Ml Inj) 0.5 mg IV Q23H PRN PRN Reason: Pain , Severe (7-10) Ceftriaxone Sodium (Rocephin/Ns 2 Gm/100 Ml) 2 gm in 100 mls @ 200 mls/hr IV Q24H [facility]; Protocol Remdesivir 200 mg/ Sodium (Chloride) 250 mls @ 500 mls/hr IV ONCE ONE Stop: 06/20/22 10:23 Remdesivir 100 mg/ Sodium (Chloride) 250 mls @ 500 mls/hr IV Q24HR@1400 [facility] Stop: 06/24/22 14:29 Meclizine HCl (Meclizine 25 Mg Tab) 25 mg PO TID PRN PRN Reason: Vertigo Methylprednisolone Sodium Succinate (Methylprednisolone Sod Succinate 40 Mg/1 Ml Inj) 40 mg IV Q8HR [facility] Last Admin: 06/20/22 05:35 Dose: 40 mg Ondansetron HCl (Ondansetron 4 Mg/2 Ml Inj) 4 mg IV Q8H PRN PRN Reason: Nausea And Vomiting Oxycodone/Acetaminophen (Oxycodone /Acetaminophen 5-325mg Tab) 1 tab PO Q16H PRN PRN Reason: Pain, Moderate (4-6) Pseudoephedrine/Acetam/Chlorphenir (Guaifenesin/Codeine 100-10mg Oral Liqd 5 Ml) 5 ml PO Q6HR PRN PRN Reason: Cough Sodium Chloride (Sodium Chloride 0.9% 10 Ml Flush Syringe) 10 ml IV BID [facility] Last Admin: 06/19/22 22:07 Dose: 10 ml Sodium Chloride (Sodium Chloride 0.9% 10 Ml Flush Syringe) 10 ml IV PRN PRN PRN Reason: LINE FLUSH Sodium Chloride (Sodium Chloride 0.9% 50 Ml Ivpb) 50 ml IV Q24HR@1400 [facility] Stop: 06/24/22 14:01 Verapamil HCl (Verapamil Er 180 Mg Tab) 180 mg PO QDAY [facility] Physical Examination - Physical Exam Narrative exam: Physical Exam: Constitutional: Alert, cooperative. No acute distress Head, Ears, Nose: Normocephalic, atraumatic. External ears, nose normal Eyes: Conjunctivae/corneas clear. No icterus. No ptosis. Neck: Supple, no meningeal signs Cardiovascular: S1, S2 + Respiratory: Good air entry, clear to auscultation bilaterally GI: Soft, non-tender; bowel sounds normal. No peritoneal signs Musculoskeletal: No pedal edema, no cyanosis. Skin: No rash or abscess Hem/Lymphatic: No palpable cervical or supraclavicular nodes. No lymphangitis Psych: Mood ok. Affect normal Neurological: Awake, alert, oriented. No gross abnormality - Constitutional Vitals: Vital Signs Temp Pulse Resp BP Pulse Ox 98.9 F 50 L 18 156/80 100 06/20/22 04:36 06/20/22 04:36 06/20/22 04:36 06/20/22 04:36 06/20/22 04:36 Temperature -Last 24 Hours Temperature 98.9 F Temperature 97.4 F Temperature 97.5 F Temperature 98.4 F Results - Labs CBC & Chem 7: 06/20/22 06:26 06/20/22 06:26 Labs: Abnormal lab results 06/19/22 06/19/22 06/20/22 Range/Units 13:47 13:47 06:26 WBC 16.5 H (4.5-11.0) K/mm3 RBC 5.21 H 5.40 H (3.65-5.03) M/mm3 Hgb 15.3 H (11.8-15.2) gm/dl Hct 47.8 H (35.5-45.6) % Lymph % (Auto) 7.8 L (13.4-35.0) % [place] % (Auto) 10.2 H (0.0-7.3) % [place] # (Auto) 1.7 H (0.0-0.8) K/mm3 Seg Neutrophils % 82.0 H (40.0-70.0) % Seg Neuts % (Manual) 92.0 H (40.0-70.0) % Lymphocytes % (Manual) 3.0 L (13.4-35.0) % Seg Neutrophils # 13.5 H (1.8-7.7) K/mm3 Seg Neutrophils # Man 9.8 H (1.8-7.7) K/mm3 Lymphocytes # (Manual) 0.3 L (1.2-5.4) K/mm3 Sodium 134 L (137-145) mmol/L Potassium (3.6-5.0) mmol/L Chloride 94.9 L (98-107) mmol/L Glucose 128 H (75-100) mg/dL NT-Pro-B Natriuret Pep 4365 H (0-900) pg/mL Albumin 3.4 L (3.9-5) g/dL 06/20/22 Range/Units 06:26 WBC (4.5-11.0) K/mm3 RBC (3.65-5.03) M/mm3 Hgb (11.8-15.2) gm/dl Hct (35.5-45.6) % Lymph % (Auto) (13.4-35.0) % [place] % (Auto) (0.0-7.3) % [place] # (Auto) (0.0-0.8) K/mm3 Seg Neutrophils % (40.0-70.0) % Seg Neuts % (Manual) (40.0-70.0) % Lymphocytes % (Manual) (13.4-35.0) % Seg Neutrophils # (1.8-7.7) K/mm3 Seg Neutrophils # Man (1.8-7.7) K/mm3 Lymphocytes # (Manual) (1.2-5.4) K/mm3 Sodium (137-145) mmol/L Potassium 5.2 H D (3.6-5.0) mmol/L Chloride 97.5 L (98-107) mmol/L Glucose 138 H (75-100) mg/dL NT-Pro-B Natriuret Pep (0-900) pg/mL Albumin (3.9-5) g/dL - Imaging and Cardiology Chest x-ray: report reviewed, image reviewed (emphysematous changes with mild interstitial prominence) Assessment and Plan Cultures: SARS CoV2 PCR: Pending but positive as outpatient 06/19/2022 blood culture: In process A/P: 81-year-old male with prior CVA, CAD s/p stent placement, COPD: #Bilateral pneumonia: Likely secondary to COVID-19. Patient reports he went to a clinic and tested positive for COVID-19 last week. #Acute hypoxic respiratory failure: Requiring nasal cannula. #CHF: TTE with normal EF. #Tobacco abuse Recs: -Already on steroids per primary team -IV remdesivir x 5 days, ordered -prophylactic anticoagulation based on d-dimer per hospital protocol -continue empiric abx x 5 days -trend ferritin, d-dimer, CRP every 2-3 days Lisa Nicole MD, FACFRITZ [facility] O: [phone] F: [phone] C: [phone]
[2022-06-20] MEDS ORDERED: CHOLECALCIFEROL (VIT D3) 400 UNIT TAB PO SCH (10:00)
[2022-06-20] MEDS ORDERED: DEXAMETHASONE 4 MG TAB PO SCH (10:00)
[2022-06-20] MEDS: HEPARIN 5,000 UNIT/1 ML VIAL SUB-Q SCH ×2 (10:04→22:02)
[2022-06-20] MEDS: ASCORBIC ACID 500 MG TAB PO SCH ×2 (10:04→22:02)
[2022-06-20] MEDS: CHOLECALCIFEROL (VIT D3) 1000 UNIT (25 mcg) TAB PO SCH (10:04)
[2022-06-20] MEDS ORDERED: REMDESIVIR 200 MG in SODIUM CHLORIDE 0.9% 250ML 250 ML IV ONE (12:00)
[2022-06-20] MEDS: SODIUM CHLORIDE 0.9% 50 ML IVPB IV SCH (12:09)
[2022-06-20] MEDS: VERAPAMIL ER 180 MG TAB PO SCH (13:44)
[2022-06-20] MEDS: cefTRIAXone/NS 2 GM/100 ML 2 GM/100 ML BAG IV SCH (14:12)
[2022-06-20] MEDS ORDERED: AZITHROMYCIN/NS 500 MG/250 ML 500 MG/250 ML BAG IV SCH (15:00)
--- NOTE | 2022-06-20 17:06 | Electrocardiograph Report ---
[facility] Test Date: 2022-06-20 Test Time: 11:46:03 Pat Name: MARTHA DOVER Department: Room: A354 2 Gender: M Pharmacology Teacher: ELIZABETH : 1940 Requested By: BRITTNEY KENDRICK Order Number: [id number] Reading MD: Javier eD Leon Measurements Intervals Anna Rate: 58 P: 63 NJ: 141 QRS: 4 QRSD: 104 T: 77 QT: 480 QTc: 472 Interpretive Statements Sinus bradycardia Atrial premature complex Abnormal R-wave progression, early transition Compared to ECG 01/17/2022 20:28:47 Atrial premature complex(es) now present Ventricular premature complex(es) no longer present Electronically Signed On 06-20-2022 17:06:20 EDT by Javier De Leon
[2022-06-20] MEDS: AZITHROMYCIN 250 MG TAB PO SCH (18:15)
--- NOTE | 2022-06-20 22:54 | Cat Scan Report ---
CTA CHEST WITH CONTRAST INDICATION / CLINICAL INFORMATION: COVID-19/elevated D-dimers/hypoxia/rule out PE 100ml of [id number]. TECHNIQUE: Axial CT images were obtained through the chest after injection of IV contrast. 3 plane KS P and/or 3D reconstructions were produced. All CT scans at this location are performed using CT dose reduction for ALARA by means of automated exposure control. COMPARISON: One view of the chest from 06/19/2022. CTA chest from 09/26/2017. FINDINGS: PULMONARY EMBOLUS: There is poor opacification of the pulmonary arteries. No distinct central pulmona ry emboli are seen. THORACIC AORTA: There is severe generalized atherosclerosis without acute findings. HEART: No significant abnormality. CORONARY ARTERY CALCIFICATION: Present -- Moderate. MEDIASTINUM / ZEE: No significant abnormality. PLEURA: No pleural effusion. No pneumothorax. LUNGS: No acute air space or interstitial disease. There are generalized bilateral chronic appearing interstitial changes. Moderate emphysema is noted. No suspicious nodule or mass. ADDITIONAL FINDINGS: None. UPPER ABDOMEN: An uncomplicated infrarenal abdominal aortic aneurysm measures 5.0 x 4.7 cm on image 1 52 of series 2. There is severe atherosclerosis. No other significant abnormality. SKELETAL STRUCTURES: No acute findings. The bones are demineralized. There is mild spondylosis. IMPRESSION: 1. Poor opacification of the pulmonary arteries without visualization of distinct central pulmonary e mboli. 2. No evidence of pneumonia or other acute findings to explain the patient's complaints. 3. Additional findings as above. 2. No acute findings. Signer Name: Brennan Mercer MD Signed: 06/20/2022 10:50 PM Workstation Name: [id number]
[2022-06-21] MEDS: BENZONATATE 100 MG CAP PO SCH ×3 (05:14→23:22)
[2022-06-21] MEDS: methylPREDNISolone Sod Succinate 40 MG/1 ML INJ IV SCH ×3 (05:14→23:22)
[2022-06-21] MEDS: FUROSEMIDE 20 MG/2 ML INJ IV SCH ×2 (05:14→17:33)
--- NOTE | 2022-06-21 09:24 | Progress Note ---
Assessment and Plan 81-year-old male patient with significant past medical history of CVA, Coronary artery disease status post PCI, COPD, vascular dementia was admitted through emergency room with worsening shortness of breath and history of positive COVID 19 infection. Patient D-dimers are elevated today, check CTA to rule out PE and bilateral venous Doppler lower extremity to rule out DVT/ 06/20/22; follow CTA chest, lower extremity venous Doppler, ID following 06/21/22: cont covid protocol, pending repeat covid study. follow repeat BMP Assessment and Plan: -- Sepsis/present on admission Sepsis protocol: Chest x-ray, CBC, CMP, supplemental oxygen, pulse oximetry, IV fluid resuscitation therapy, IV antibiotic therapy, maintain mean arterial pressure greater than equal to 65, IV pressor support as clinically indicated, serial lactic acid level, blood culture. --Community-acquired Pneumonia; POA Chest x-ray, supplemental oxygen, pulse oximetry, nebulizer therapy, IV antibiotic therapy, --Acute hypoxemic respiratory failure Oxygen titrate O2 sats more than 90%, treat the underlying cause COVID-19 And pneumonia, home O2 evaluation prior to discharge, wean O2 as tolerated --Coronavirus infection/COVID-19 Isolation/PPE protocols Coronavirus protocol: Vitamin C therapy, vitamin D therapy, zinc therapy, IV antibiotic therapy, IV steroid therapy, prophylactic anticoagulation, infectious disease service consulted, prophylactic anticoagulation. --Hyperkalemia, repeat BMP --Elevated D-dimers; COVID-19/hypoxia/elevated D-dimers Check CTA chest to rule out PE Check lower extremity venous Doppler to rule out DVT --Hyponatremia syndrome IV fluid resuscitation therapy, BMP, repeat BMP in a.m. Monitor electrolytes --Nicotine dependence Smoking cessation counseled, supportive care, behavior change counseled, +15 minutes. -- Moderate protein calorie malnutrition Increase protein intake, dietary supplementation -- Acute diastolic CHF (congestive heart failure) EF 50 to 55% New onset CHF: BNP, thyroid panel, magnesium level, Follow echocardiogram LV function ejection fraction Diuretics, strict I's/O, monitor urine output every shift, daily weight, afterload reduction, diuresis with Lasix. --DVT prophylaxis SCD to bilateral lower extremities while in bed, prophylactic anticoagulation --Full CODE STATUS --Advance care planning Disease education conducted, care plan discussed, diagnoses discussed, prognosis discussed, patient is full code. Patient acknowledges understanding and agreement with care plan, +30 minutes. -- Preventative health care Patient counseled regarding outpatient follow-up with primary care physician Patient advised to quit tobacco use, long-term sequelae and complications of ongoing tobacco discussed with the patient Advised nicotine patch, patient also advised highly nutritious food, multivitamin and supplementary nutrition Additional 32 minutes Closely monitor the patient and adjust the management as needed Plan of care reviewed with patient and nurse Consults and recommendations noted and appreciated Subjective Date of service: 06/21/22 Interval history: Patient seen and examined at bedside Patient's chart and medications reviewed Isolation precautions and PPE protocols strictly followed Vital signs noted Patient is on 2 L of nasal cannula oxygen Objective - Exam Narrative Exam: General appearance: Present: mild distress, cachectic - EENT Eyes: Present: PERRL, EOM intact - Neck Neck: Present: supple, normal ROM - Respiratory Respiratory effort: normal Respiratory: bilateral: diminished, rhonchi, negative: rales, wheezing - Cardiovascular Rhythm: regular Heart Sounds: Present: S1 & S2 - Extremities Extremities: no ischemia, No edema - Abdominal General gastrointestinal: soft, non-tender, non-distended - Integumentary Integumentary: Present: clear, warm - Psychiatric Psychiatric: appropriate mood/affect, cooperative - Neurologic Neurologic: CNII-XII intact, moves all extremities - Constitutional Vitals: Vital Signs - 12hr 06/20/22 06/20/22 06/21/22 23:30 23:54 05:51 Temperature 97.5 F L 97.7 F Pulse Rate 56 L 61 Respiratory 20 20 Rate Blood Pressure 123/70 114/63 O2 Sat by Pulse 98 99 96 Oximetry 06/21/22 09:00 Temperature Pulse Rate Respiratory Rate Blood Pressure O2 Sat by Pulse 97 Oximetry - Labs CBC & Chem 7: 06/20/22 06:26 06/22/22 06:39 Labs: Abnormal lab results 06/20/22 06/20/22 06/20/22 Range/Units 06:26 10:40 10:40 Seg Neuts % (Manual) 92.0 H (40.0-70.0) % Lymphocytes % (Manual) 3.0 L (13.4-35.0) % Seg Neutrophils # Man 9.8 H (1.8-7.7) K/mm3 Lymphocytes # (Manual) 0.3 L (1.2-5.4) K/mm3 D-Dimer 3961.19 H (0-234) ng/mlDDU Ferritin 431.1 H (30.0-300.0) ng/mL C-Reactive Protein (0.00-1.30) mg/dL 06/20/22 Range/Units 10:40 Seg Neuts % (Manual) (40.0-70.0) % Lymphocytes % (Manual) (13.4-35.0) % Seg Neutrophils # Man (1.8-7.7) K/mm3 Lymphocytes # (Manual) (1.2-5.4) K/mm3 D-Dimer (0-234) ng/mlDDU Ferritin (30.0-300.0) ng/mL C-Reactive Protein 9.40 H (0.00-1.30) mg/dL HEART Score - HEART Score Troponin: Troponin T 0.019 ng/mL (0.00-0.029) 06/19/22 13:47
[2022-06-21] MEDS: ASCORBIC ACID 500 MG TAB PO SCH ×2 (09:28→23:21)
[2022-06-21] MEDS: HEPARIN 5,000 UNIT/1 ML VIAL SUB-Q SCH ×2 (09:29→23:21)
[2022-06-21] MEDS: CHOLECALCIFEROL (VIT D3) 1000 UNIT (25 mcg) TAB PO SCH (09:29)
[2022-06-21 10:05] LABS: Albumin 3.4 g/dL (3.9-5)
[2022-06-21 10:18] LABS: Calcium 8.9 mg/dL (8.4-10.2)
--- NOTE | 2022-06-21 10:41 | Progress Note ---
Assessment and Plan Cultures: SARS CoV2 PCR: Pending but positive as outpatient 06/19/2022 blood culture: no growth A/P: 81-year-old male with prior CVA, CAD s/p stent placement, COPD: #Bilateral pneumonia: Likely secondary to COVID-19. Patient reports he went to a clinic and tested positive for COVID-19 last week. D-dimer 3961, CRP 9.4, procalcitonin 0.16. #Acute hypoxic respiratory failure: Requiring nasal cannula. #CHF: TTE with normal EF. #Tobacco abuse Recs: -continue on steroids per primary team -continue IV remdesivir x 5 days -prophylactic anticoagulation based on d-dimer per hospital protocol -continue empiric abx x 5 days -trend ferritin, d-dimer, CRP every 2-3 days Lisa Nicole MD, FACP, [facility] O: [phone] F: [phone] C: [phone] Subjective Date of service: 06/21/22 Interval history: Afebrile. Stable on oxygen by nasal cannula at 2 L/min. D-dimer 3961, CRP 9.4, procalcitonin 0.16. Objective - Exam Narrative Exam: Physical Exam: deferred, minimize risk of COVID-19 transmission - Constitutional Vitals: Vital Signs Temp Pulse Resp BP Pulse Ox 97.7 F 61 20 114/63 97 06/21/22 05:51 06/21/22 05:51 06/21/22 05:51 06/21/22 05:51 06/21/22 09:00 Temperature -Last 24 Hours Temperature 97.7 F Temperature 97.5 F Temperature 97.6 F - Labs CBC & Chem 7: 06/20/22 06:26 06/21/22 Unknown Labs: Abnormal lab results 06/20/22 06/20/22 06/20/22 Range/Units 10:40 10:40 10:40 D-Dimer 3961.19 H (0-234) ng/mlDDU BUN (9-20) mg/dL Glucose (75-100) mg/dL Ferritin 431.1 H (30.0-300.0) ng/mL C-Reactive Protein 9.40 H (0.00-1.30) mg/dL Albumin (3.9-5) g/dL 06/21/22 Range/Units Unknown D-Dimer (0-234) ng/mlDDU BUN 31 H (9-20) mg/dL Glucose 125 H (75-100) mg/dL Ferritin (30.0-300.0) ng/mL C-Reactive Protein (0.00-1.30) mg/dL Albumin 3.4 L (3.9-5) g/dL
[2022-06-21] MEDS: SODIUM CHLORIDE 0.9% 50 ML IVPB IV SCH (13:27)
[2022-06-21] MEDS: VERAPAMIL ER 180 MG TAB PO SCH (13:27)
[2022-06-21] MEDS: REMDESIVIR 100 MG in SODIUM CHLORIDE 0.9% 250ML 250 ML IV SCH (13:28)
--- NOTE | 2022-06-21 13:39 | Vascular Lab Report ---
DUPLEX DOPPLER LOWER EXTREMITY VEINS, BILATERAL INDICATION / CLINICAL INFORMATION: COVID-19/elevated D-dimer/hypoxia/rule out DVT. TECHNIQUE: Duplex doppler imaging was performed through the veins of both lower extremities using christine ous compression and other maneuvers. COMPARISON: None available. FINDINGS: RIGHT COMMON FEMORAL VEIN: Negative. RIGHT FEMORAL VEIN: Negative. RIGHT POPLITEAL VEIN: Negative. RIGHT CALF VEINS: Negative. LEFT COMMON FEMORAL VEIN: Negative. LEFT FEMORAL VEIN: Negative. LEFT POPLITEAL VEIN: Negative. LEFT CALF VEINS: Negative. ADDITIONAL FINDINGS: None. IMPRESSION: 1. No sonographic evidence for DVT in either lower extremity. Scribed by: Praveena Cloud RDMS, KIMBERLY, DENI Scribed: 06/21/2022 11:51 AM I have reviewed the images, agree with this report, and edited this report as needed. Signer Name: Brennan Mercer MD Signed: 06/21/2022 1:34 PM Workstation Name: [id number]
[2022-06-21] MEDS: cefTRIAXone/NS 2 GM/100 ML 2 GM/100 ML BAG IV SCH (14:25)
[2022-06-21] MEDS: AZITHROMYCIN 250 MG TAB PO SCH (17:33)
[2022-06-22] MEDS: BENZONATATE 100 MG CAP PO SCH ×3 (05:32→21:16)
[2022-06-22] MEDS: FUROSEMIDE 20 MG/2 ML INJ IV SCH ×2 (05:32→19:06)
[2022-06-22] MEDS: methylPREDNISolone Sod Succinate 40 MG/1 ML INJ IV SCH (05:32)
[2022-06-22 07:50] LABS: Calcium 8.5 mg/dL (8.4-10.2)
[2022-06-22 07:51] LABS: Albumin 3.4 g/dL (3.9-5)
[2022-06-22] MEDS: DEXAMETHASONE 2 MG TAB PO SCH (09:31)
[2022-06-22] MEDS: VERAPAMIL ER 180 MG TAB PO SCH (09:31)
[2022-06-22] MEDS: HEPARIN 5,000 UNIT/1 ML VIAL SUB-Q SCH ×2 (09:33→21:16)
[2022-06-22] MEDS: CHOLECALCIFEROL (VIT D3) 1000 UNIT (25 mcg) TAB PO SCH (09:33)
[2022-06-22] MEDS: ASCORBIC ACID 500 MG TAB PO SCH ×2 (09:33→21:16)
[2022-06-22] MEDS: SODIUM CHLORIDE 0.9% 1000 ML 1,000 ML IV SCH ×2 (09:34→21:19)
--- NOTE | 2022-06-22 10:56 | Progress Note ---
Assessment and Plan Cultures: SARS CoV2 PCR: Positive 06/19/2022 blood culture: no growth A/P: 81-year-old male with prior CVA, CAD s/p stent placement, COPD: #Bilateral pneumonia: secondary to COVID-19. Patient reports he went to a clinic and tested positive for COVID-19 last week, also positive here. D-dimer 3961, CRP 9.4, procalcitonin 0.16. #Acute hypoxic respiratory failure: Requiring nasal cannula. #CHF: TTE with normal EF. #Tobacco abuse Recs: -continue on steroids per primary team -continue IV remdesivir x 5 days -prophylactic anticoagulation based on d-dimer per hospital protocol -continue empiric abx x 5 days -trend ferritin, d-dimer, CRP every 2-3 days Lisa Nicole MD, FACP, [facility] O: [phone] F: [phone] C: [phone] Subjective Date of service: 06/22/22 Interval history: Afebrile. Stable on oxygen by nasal cannula at 2 L/min. Objective - Exam Narrative Exam: Physical Exam: deferred, minimize risk of COVID-19 transmission - Constitutional Vitals: Vital Signs Temp Pulse Resp BP Pulse Ox 97.5 F L 54 L 18 126/68 94 06/22/22 04:00 06/22/22 04:00 06/22/22 04:00 06/22/22 04:00 06/22/22 10:45 Temperature -Last 24 Hours Temperature 97.5 F Temperature 97.3 F - Labs CBC & Chem 7: 06/20/22 06:26 06/22/22 06:39 Labs: Abnormal lab results 06/21/22 06/22/22 Range/Units 09:35 06:39 Potassium 3.2 L D (3.6-5.0) mmol/L Chloride 96.2 L (98-107) mmol/L BUN 35 H (9-20) mg/dL Creatinine 1.4 H (0.8-1.3) mg/dL Glucose 127 H (75-100) mg/dL Albumin 3.4 L (3.9-5) g/dL Coronavirus (PCR) Positive A (Negative)
[2022-06-22] MEDS: SODIUM CHLORIDE 0.9% 50 ML IVPB IV SCH (14:19)
[2022-06-22] MEDS: REMDESIVIR 100 MG in SODIUM CHLORIDE 0.9% 250ML 250 ML IV SCH (14:21)
[2022-06-22] MEDS: cefTRIAXone/NS 2 GM/100 ML 2 GM/100 ML BAG IV SCH (15:15)
--- NOTE | 2022-06-22 15:40 | Progress Note ---
Assessment and Plan 81-year-old male patient with significant past medical history of CVA, Coronary artery disease status post PCI, COPD, vascular dementia was admitted through emergency room with worsening shortness of breath and history of positive COVID 19 infection. Patient D-dimers are elevated today, check CTA to rule out PE and bilateral venous Doppler lower extremity to rule out DVT/ 06/20/22; follow CTA chest, lower extremity venous Doppler, ID following 06/21/22: cont covid protocol, pending repeat covid study. follow repeat BMP 06/22: Repeat covid test is positive, continue on steroids for 10 days, continue IV remdesivir x 5 days -continue empiric abx x 5 days -trend ferritin, d-dimer, CRP every 2-3 days Assessment and Plan: -- Sepsis/present on admission Sepsis protocol: Chest x-ray, CBC, CMP, supplemental oxygen, pulse oximetry, IV fluid resuscitation therapy, IV antibiotic therapy, maintain mean arterial pressure greater than equal to 65, IV pressor support as clinically indicated, serial lactic acid level, blood culture. --Community-acquired Pneumonia; POA Chest x-ray, supplemental oxygen, pulse oximetry, nebulizer therapy, IV antibiotic therapy, --Acute hypoxemic respiratory failure Oxygen titrate O2 sats more than 90%, treat the underlying cause COVID-19 And pneumonia, home O2 evaluation prior to discharge, wean O2 as tolerated --Coronavirus infection/COVID-19 Isolation/PPE protocols Coronavirus protocol: Vitamin C therapy, vitamin D therapy, zinc therapy, IV antibiotic therapy, IV steroid therapy, prophylactic anticoagulation, infectious disease service consulted, prophylactic anticoagulation. --Hyperkalemia, resolved -- hypokalemia, give one dose KCL, repeat BMP, --Mild GABE, gentle IV fluid, repeat BMP --Elevated D-dimers; COVID-19/hypoxia/elevated D-dimers Check CTA chest to rule out PE Check lower extremity venous Doppler to rule out DVT --Hyponatremia syndrome IV fluid resuscitation therapy, BMP, repeat BMP in a.m. Monitor electrolytes --Nicotine dependence Smoking cessation counseled, supportive care, behavior change counseled, +15 minutes. -- Moderate protein calorie malnutrition Increase protein intake, dietary supplementation -- Acute diastolic CHF (congestive heart failure) EF 50 to 55% New onset CHF: BNP, thyroid panel, magnesium level, Follow echocardiogram LV function ejection fraction Diuretics, strict I's/O, monitor urine output every shift, daily weight, afterload reduction, diuresis with Lasix. --DVT prophylaxis SCD to bilateral lower extremities while in bed, prophylactic anticoagulation --Full CODE STATUS --Advance care planning Disease education conducted, care plan discussed, diagnoses discussed, prognosis discussed, patient is full code. Patient acknowledges understanding and agreement with care plan, +30 minutes. -- Preventative health care Patient counseled regarding outpatient follow-up with primary care physician Patient advised to quit tobacco use, long-term sequelae and complications of ongoing tobacco discussed with the patient Advised nicotine patch, patient also advised highly nutritious food, multivitamin and supplementary nutrition Additional 32 minutes Closely monitor the patient and adjust the management as needed Plan of care reviewed with patient and nurse Consults and recommendations noted and appreciated Subjective Date of service: 06/22/22 Interval history: Patient seen and examined at bedside Patient's chart and medications reviewed Isolation precautions and PPE protocols strictly followed Vital signs noted Patient is on 2 L of nasal cannula oxygen Objective - Exam Narrative Exam: General appearance: Present: mild distress, cachectic - EENT Eyes: Present: PERRL, EOM intact - Neck Neck: Present: supple, normal ROM - Respiratory Respiratory effort: normal Respiratory: bilateral: diminished, rhonchi, negative: rales, wheezing - Cardiovascular Rhythm: regular Heart Sounds: Present: S1 & S2 - Extremities Extremities: no ischemia, No edema - Abdominal General gastrointestinal: soft, non-tender, non-distended - Integumentary Integumentary: Present: clear, warm - Psychiatric Psychiatric: appropriate mood/affect, cooperative - Neurologic Neurologic: CNII-XII intact, moves all extremities - Constitutional Vitals: Vital Signs - 12hr 06/22/22 06/22/22 06/22/22 04:00 08:26 10:45 Temperature 97.5 F L Pulse Rate 54 L Respiratory 18 Rate Blood Pressure Blood Pressure 126/68 [Right] O2 Sat by Pulse 96 96 94 Oximetry 06/22/22 06/22/22 14:25 15:16 Temperature 97.7 F Pulse Rate 64 Respiratory 18 Rate Blood Pressure 100/58 Blood Pressure [Right] O2 Sat by Pulse 97 Oximetry - Labs CBC & Chem 7: 06/20/22 06:26 06/23/22 07:04 Labs: Abnormal lab results 06/22/22 Range/Units 06:39 Potassium 3.2 L D (3.6-5.0) mmol/L Chloride 96.2 L (98-107) mmol/L BUN 35 H (9-20) mg/dL Creatinine 1.4 H (0.8-1.3) mg/dL Glucose 127 H (75-100) mg/dL Albumin 3.4 L (3.9-5) g/dL HEART Score - HEART Score Troponin: Troponin T 0.019 ng/mL (0.00-0.029) 06/19/22 13:47
[2022-06-22] MEDS ORDERED: POTASSIUM CHLORIDE ER 20 MEQ TAB PO SCH (16:00)
[2022-06-22] MEDS: AZITHROMYCIN 250 MG TAB PO SCH (19:02)
[2022-06-23] MEDS: BENZONATATE 100 MG CAP PO SCH ×3 (05:20→21:28)
[2022-06-23] MEDS: FUROSEMIDE 20 MG/2 ML INJ IV SCH ×2 (05:20→18:10)
--- NOTE | 2022-06-23 07:25 | Progress Note ---
Assessment and Plan Cultures: SARS CoV2 PCR: Positive 06/19/2022 blood culture: no growth A/P: 81-year-old male with prior CVA, CAD s/p stent placement, COPD: #Bilateral pneumonia: secondary to COVID-19. Patient reports he went to a clinic and tested positive for COVID-19 last week, also positive here. D-dimer 3961, CRP 9.4, procalcitonin 0.16. #Acute hypoxic respiratory failure: Requiring nasal cannula. #CHF: TTE with normal EF. #Tobacco abuse Recs: -continue on steroids per primary team (complete 10 days) -continue IV remdesivir x 5 days -prophylactic anticoagulation based on d-dimer per hospital protocol -antibiotics end today -discharge planning, home oxygen evaluation Lisa Nciole MD, FACP, [facility] ([facility] O: [phone] F: [phone] C: [phone] Subjective Date of service: 06/23/22 Interval history: Afebrile. Lying in bed, comfortable on oxygen by nasal cannula at 2 L/min. Feeling better. Objective - Exam Narrative Exam: Physical Exam: Constitutional: Alert, cooperative. No acute distress Head, Ears, Nose: Normocephalic, atraumatic. External ears, nose normal Eyes: Conjunctivae/corneas clear. No icterus. No ptosis. Neck: Supple, no meningeal signs Cardiovascular: S1, S2 + Respiratory: Good air entry, clear to auscultation bilaterally GI: Soft, non-tender; bowel sounds normal. No peritoneal signs Musculoskeletal: No pedal edema, no cyanosis. Skin: No rash or abscess Hem/Lymphatic: No palpable cervical or supraclavicular nodes. No lymphangitis Psych: Mood ok. Affect normal Neurological: Awake, alert, oriented. No gross abnormality - Constitutional Vitals: Vital Signs Temp Pulse Resp BP Pulse Ox 97.0 F L 67 18 131/72 95 06/23/22 04:47 06/23/22 04:47 06/23/22 04:47 06/23/22 04:47 06/23/22 04:47 Temperature -Last 24 Hours Temperature 97.0 F Temperature 98.1 F Temperature 97.7 F - Labs CBC & Chem 7: 06/20/22 06:26 06/22/22 06:39 Labs: Abnormal lab results 06/22/22 Range/Units 06:39 Potassium 3.2 L D (3.6-5.0) mmol/L Chloride 96.2 L (98-107) mmol/L BUN 35 H (9-20) mg/dL Creatinine 1.4 H (0.8-1.3) mg/dL Glucose 127 H (75-100) mg/dL Albumin 3.4 L (3.9-5) g/dL
[2022-06-23 08:11] LABS: Albumin 3.3 g/dL (3.9-5); Calcium 8.2 mg/dL (8.4-10.2)
[2022-06-23 08:24] LABS: C-Reactive Protein 2.2 mg/dL (0.00-1.30)
[2022-06-23] MEDS: DEXAMETHASONE 2 MG TAB PO SCH (10:18)
[2022-06-23] MEDS: CHOLECALCIFEROL (VIT D3) 1000 UNIT (25 mcg) TAB PO SCH (10:18)
[2022-06-23] MEDS: ASCORBIC ACID 500 MG TAB PO SCH ×2 (10:18→21:28)
[2022-06-23] MEDS: HEPARIN 5,000 UNIT/1 ML VIAL SUB-Q SCH ×2 (10:19→21:28)
[2022-06-23] MEDS: VERAPAMIL ER 180 MG TAB PO SCH (10:20)
--- NOTE | 2022-06-23 16:21 | Progress Note ---
Assessment and Plan 81-year-old male patient with significant past medical history of CVA, Coronary artery disease status post PCI, COPD, vascular dementia was admitted through emergency room with worsening shortness of breath and history of positive COVID 19 infection. Patient D-dimers are elevated today, check CTA to rule out PE and bilateral venous Doppler lower extremity to rule out DVT/ 06/20/22; follow CTA chest, lower extremity venous Doppler, ID following 06/21/22: cont covid protocol, pending repeat covid study. follow repeat BMP 06/22: Repeat covid test is positive, continue on steroids for 10 days, continue IV remdesivir x 5 days -continue empiric abx x 5 days -trend ferritin, d-dimer, CRP every 2-3 days 06/23: Cr improved. stop diuresis. need home O2 before dc. last dose of remdesivir tomorrow, cont dexa, follow inflammatory markers. Assessment and Plan: -- Sepsis/present on admission Sepsis protocol: Chest x-ray, CBC, CMP, supplemental oxygen, pulse oximetry, IV fluid resuscitation therapy, IV antibiotic therapy, maintain mean arterial pressure greater than equal to 65, IV pressor support as clinically indicated, serial lactic acid level, blood culture. --Community-acquired Pneumonia; POA Chest x-ray, supplemental oxygen, pulse oximetry, nebulizer therapy, IV antibiotic therapy, --Acute hypoxemic respiratory failure Oxygen titrate O2 sats more than 90%, treat the underlying cause COVID-19 And pneumonia, home O2 evaluation prior to discharge, wean O2 as tolerated --Coronavirus infection/COVID-19 Isolation/PPE protocols Coronavirus protocol: Vitamin C therapy, vitamin D therapy, zinc therapy, IV antibiotic therapy, IV steroid therapy, prophylactic anticoagulation, infectious disease service consulted, prophylactic anticoagulation. --Hyperkalemia, resolved -- hypokalemia, give one dose KCL, repeat BMP, --Mild GABE, gentle IV fluid, repeat BMP --Elevated D-dimers; COVID-19/hypoxia/elevated D-dimers neg CTA for PE, neg lower extremity venous Doppler for DVT trend inflammatory markers --Hyponatremia, improved --Nicotine dependence Smoking cessation counseled, supportive care, behavior change counseled, +15 minutes. -- Moderate protein calorie malnutrition Increase protein intake, dietary supplementation -- Acute diastolic CHF (congestive heart failure) EF 50 to 55%, improved now copensated, stop lasix, monitor daily wt, ins/os --DVT prophylaxis SCD to bilateral lower extremities while in bed, prophylactic anticoagulation --Full CODE STATUS --Advance care planning Disease education conducted, care plan discussed, diagnoses discussed, prognosis discussed, patient is full code. Patient acknowledges understanding and agreement with care plan, +30 minutes. -- Preventative health care Patient counseled regarding outpatient follow-up with primary care physician Patient advised to quit tobacco use, long-term sequelae and complications of ongoing tobacco discussed with the patient Advised nicotine patch, patient also advised highly nutritious food, multivitamin and supplementary nutrition Additional 32 minutes Closely monitor the patient and adjust the management as needed Plan of care reviewed with patient and nurse Consults and recommendations noted and appreciated Subjective Date of service: 06/23/22 Interval history: Patient seen and examined at bedside Patient's chart and medications reviewed Isolation precautions and PPE protocols strictly followed Vital signs noted Patient is on 2 L of nasal cannula oxygen Objective - Exam Narrative Exam: General appearance: Present: mild distress, cachectic - EENT Eyes: Present: PERRL, EOM intact - Neck Neck: Present: supple, normal ROM - Respiratory Respiratory effort: normal Respiratory: bilateral: diminished, rhonchi, negative: rales, wheezing - Cardiovascular Rhythm: regular Heart Sounds: Present: S1 & S2 - Extremities Extremities: no ischemia, No edema - Abdominal General gastrointestinal: soft, non-tender, non-distended - Integumentary Integumentary: Present: clear, warm - Psychiatric Psychiatric: appropriate mood/affect, cooperative - Neurologic Neurologic: CNII-XII intact, moves all extremities - Constitutional Vitals: Vital Signs - 12hr 06/23/22 06/23/22 06/23/22 04:47 09:21 10:20 Temperature 97.0 F L Pulse Rate 67 63 Respiratory 18 Rate Blood Pressure 131/72 131/90 O2 Sat by Pulse 95 95 95 Oximetry 06/23/22 06/23/22 11:00 11:11 Temperature 97.1 F L Pulse Rate 72 Respiratory 18 Rate Blood Pressure 147/96 O2 Sat by Pulse 97 98 Oximetry - Labs CBC & Chem 7: 06/20/22 06:26 06/23/22 07:04 Labs: Abnormal lab results 06/23/22 06/23/22 Range/Units 07:04 07:04 Carbon Dioxide 32 H (22-30) mmol/L BUN 33 H (9-20) mg/dL Glucose 145 H (75-100) mg/dL Calcium 8.2 L (8.4-10.2) mg/dL Ferritin 398.8 H (30.0-300.0) ng/mL C-Reactive Protein 2.20 H (0.00-1.30) mg/dL Albumin 3.3 L (3.9-5) g/dL HEART Score - HEART Score Troponin: Troponin T 0.019 ng/mL (0.00-0.029) 06/19/22 13:47
[2022-06-23] MEDS: SODIUM CHLORIDE 0.9% 50 ML IVPB IV SCH (16:30)
[2022-06-23] MEDS: REMDESIVIR 100 MG in SODIUM CHLORIDE 0.9% 250ML 250 ML IV SCH (16:30)
[2022-06-23] MEDS: AZITHROMYCIN 250 MG TAB PO SCH (18:09)
[2022-06-23] MEDS: cefTRIAXone/NS 2 GM/100 ML 2 GM/100 ML BAG IV SCH (18:09)
[2022-06-24] MEDS: BENZONATATE 100 MG CAP PO SCH ×2 (05:47→14:40)
[2022-06-24] MEDS: FUROSEMIDE 20 MG/2 ML INJ IV SCH (05:47)
[2022-06-24 08:00] VITALS: BP 137/85
--- NOTE | 2022-06-24 09:23 | Progress Note ---
Subjective Date of service: 06/24/22 Objective - Constitutional Vitals: Vital Signs - 12hr 06/23/22 06/23/22 06/24/22 21:35 22:59 05:11 Temperature 97.5 F L 97.3 F L Pulse Rate 59 L 72 Respiratory 16 16 Rate Blood Pressure 131/74 146/88 O2 Sat by Pulse 91 95 94 Oximetry 06/24/22 06/24/22 07:53 08:27 Temperature 98.1 F Pulse Rate 68 Respiratory 18 Rate Blood Pressure 137/85 O2 Sat by Pulse 92 94 Oximetry General appearance: Present: no acute distress, well-nourished - EENT Eyes: PERRL, EOM intact ENT: hearing intact, clear oral mucosa Ears: bilateral: normal - Neck Neck: supple, normal ROM - Respiratory Respiratory effort: normal Respiratory: bilateral: CTA - Breasts Breasts: normal - Cardiovascular Rhythm: regular Heart Sounds: Present: S1 & S2. Absent: gallop, rub Extremities: pulses intact, No edema, normal color, Full ROM - Gastrointestinal General gastrointestinal: Present: soft, non-tender, non-distended, normal bowel sounds - Genitourinary Male genitourinary: normal - Integumentary Integumentary: clear, warm, dry - Musculoskeletal Musculoskeletal: 1, strength equal bilaterally - Neurologic Neurologic: moves all extremities - Psychiatric Psychiatric: memory intact, appropriate mood/affect, intact judgment & insight - Labs CBC & Chem 7: 06/20/22 06:26 06/23/22 07:04 HEART Score - HEART Score Troponin: Troponin T 0.019 ng/mL (0.00-0.029) 06/19/22 13:47
[2022-06-24 09:47] LABS: C-Reactive Protein 1.6 mg/dL (0.00-1.30)
--- NOTE | 2022-06-24 10:17 | Progress Note ---
Assessment and Plan Cultures: SARS CoV2 PCR: Positive 06/19/2022 blood culture: no growth A/P: 81-year-old male with prior CVA, CAD s/p stent placement, COPD: #Bilateral pneumonia: secondary to COVID-19. Patient reports he went to a clinic and tested positive for COVID-19 last week, also positive here. Upon admission, D-dimer 3961, CRP 9.4, procalcitonin 0.16. CRP down to 1.6. Ferritin stable. #Acute hypoxic respiratory failure: Requiring nasal cannula. #CHF: TTE with normal EF. #Tobacco abuse Recs: -continue on steroids per primary team (complete 10 days) -continue IV remdesivir x 5 days, last day today -prophylactic anticoagulation based on d-dimer per hospital protocol -completed abx -CRP down to 1.6. Ferritin stable. Discharge planning, home oxygen evaluation Will sign off. Please call with questions. Lisa Nicole MD, FACP, [facility] O: [phone] F: [phone] C: [phone] Subjective Date of service: 06/24/22 Interval history: Afebrile. Lying in bed, stable on oxygen by nasal cannula at 2 L/min Objective - Exam Narrative Exam: Physical Exam: Constitutional: Alert, cooperative. No acute distress Head, Ears, Nose: Normocephalic, atraumatic. External ears, nose normal Eyes: Conjunctivae/corneas clear. No icterus. No ptosis. Neck: Supple, no meningeal signs Cardiovascular: S1, S2 + Respiratory: Good air entry, clear to auscultation bilaterally GI: Soft, non-tender; bowel sounds normal. No peritoneal signs Musculoskeletal: No pedal edema, no cyanosis. Skin: No rash or abscess Hem/Lymphatic: No palpable cervical or supraclavicular nodes. No lymphangitis Psych: Mood ok. Affect normal Neurological: Awake, alert, oriented. No gross abnormality - Constitutional Vitals: Vital Signs Temp Pulse Resp BP Pulse Ox 98.1 F 68 18 137/85 94 06/24/22 07:53 06/24/22 07:53 06/24/22 07:53 06/24/22 07:53 06/24/22 08:27 Temperature -Last 24 Hours Temperature 98.1 F Temperature 97.3 F Temperature 97.5 F Temperature 98.0 F Temperature 97.1 F - Labs CBC & Chem 7: 06/20/22 06:26 06/24/22 08:42 Labs: Abnormal lab results 06/24/22 06/24/22 06/24/22 Range/Units 08:42 08:42 08:42 D-Dimer 1997.86 H (0-234) ng/mlDDU Glucose 156 H (75-100) mg/dL Ferritin 448.2 H (30.0-300.0) ng/mL Lactate Dehydrogenase 223 H (91-180) units/L C-Reactive Protein 1.60 H (0.00-1.30) mg/dL
[2022-06-24] MEDS: VERAPAMIL ER 180 MG TAB PO SCH (10:53)
[2022-06-24] MEDS: ASCORBIC ACID 500 MG TAB PO SCH (10:54)
[2022-06-24] MEDS: DEXAMETHASONE 2 MG TAB PO SCH (10:54)
[2022-06-24] MEDS: CHOLECALCIFEROL (VIT D3) 1000 UNIT (25 mcg) TAB PO SCH (10:54)
[2022-06-24] MEDS: HEPARIN 5,000 UNIT/1 ML VIAL SUB-Q SCH (10:54)
--- NOTE | 2022-06-24 12:05 | Discharge Summary ---
Providers - Providers Date of Admission: 06/19/22 15:19 Date of discharge: 06/24/22 Attending physician: FRAN RYAN 06/19/22 15:25 Consult to Physician [CONS] Routine Comment: Consulting Provider: BELEN ARAYA Physician Instructions: Reason For Exam: covid Primary care physician: [facility] [facility] Hospitalization Condition: Fair Hospital course: Subjective Date of service: 06/24/22 Interval history: Patient seen and examined at bedside Patient's chart and medications reviewed Isolation precautions and PPE protocols strictly followed Vital signs noted Patient is on 2 L of nasal cannula oxygen Patient will discharge today on 2 L nasal cannula oxygen after last dose of re mdesivir Hospital course 81-year-old male patient with significant past medical history of CVA, Coronary artery disease status post PCI, COPD, vascular dementia was admitted through emergency room with worsening shortness of breath and history of positive COVID 19 infection. Patient D-dimers are elevated today, check CTA to rule out PE and bilateral venous Doppler lower extremity to rule out DVT/ 06/20/22; follow CTA chest, lower extremity venous Doppler, ID following 06/21/22: cont covid protocol, pending repeat covid study. follow repeat BMP 06/22: Repeat covid test is positive, continue on steroids for 10 days, continue IV remdesivir x 5 days -continue empiric abx x 5 days -trend ferritin, d-dimer, CRP every 2-3 days 06/23: Cr improved. stop diuresis. need home O2 before dc. last dose of remdesivir tomorrow, cont dexa, follow inflammatory markers. 06/24/22--D/c on 2 L [place] O2 Assessment and Plan: -- Sepsis/present on admission Improved On 2 L nasal cannula oxygen We will do a repeat walk test Even otherwise he will be discharged on 2 L nasal cannula oxygen if necessary Received his last dose of remdesivir today --Community-acquired Pneumonia; POA Improved --Acute hypoxemic respiratory failure Improved --Coronavirus infection/COVID-19 Last dose of remdesivir today --[id number], Supplemented Resolved --Mild GABE, Resolved --Elevated D-dimers; CT angiogram and lower extremity Dopplers are negative for any thrombus or embolism. --Hyponatremia, improved --Nicotine dependence Smoking cessation counseled, supportive care, behavior change counseled, +15 minutes. -- Moderate protein calorie malnutrition Increase protein intake, dietary supplementation -- Acute diastolic CHF (congestive heart failure) EF 50 to 55%, improved now copensated, stop lasix, monitor daily wt, ins/os --DVT prophylaxis SCD to bilateral lower extremities while in bed, prophylactic anticoagulation --Full CODE STATUS --Advance care planning Disease education conducted, care plan discussed, diagnoses discussed, prognosis discussed, patient is full code. Patient acknowledges understanding and agreement with care plan, +30 minutes. -- Preventative health care Patient counseled regarding outpatient follow-up with primary care physician Patient advised to quit tobacco use, long-term sequelae and complications of ongoing tobacco discussed with the patient Advised nicotine patch, patient also advised highly nutritious food, multivitamin and supplementary nutrition Additional 32 minutes Closely monitor the patient and adjust the management as needed Plan of care reviewed with patient and nurse Consults and recommendations noted and appreciated Disposition: 01 HOME / SELF CARE / HOMELESS Final Discharge Diagnosis (Prints w/discharge instructions): Sepsis. COVID pneumonia. Acute hypoxemic respiratory failure. Hypokalemia. GABE. Hyponatremia. Elevated D-dimer. Protein calorie malnutrition Time spent for discharge: 35 minutes - Discharge Diagnoses (1) Acute hypoxemic respiratory failure Status: Acute (2) Coronavirus infection Status: Acute (3) Hyponatremia syndrome Status: Acute (4) Malnutrition Status: Acute Qualifiers: Protein-calorie malnutrition severity: severe (5) Pneumonia Status: Acute (6) Sepsis Status: Acute Qualifiers: Acute respiratory failure type: with hypoxia (7) Nicotine dependence Status: Acute Qualifiers: Nicotine product type: cigarettes Substance use status: in withdrawal Qualified Code(s): F17.213 - Nicotine dependence, cigarettes, with withdrawal Core Measure Documentation - Palliative Care Palliative Care/ Comfort Measures: Not Applicable - Core Measures Any of the following diagnoses?: none Exam - Constitutional Vitals: Temp Pulse Resp BP Pulse Ox 98.1 F 68 18 137/85 97 06/24/22 07:53 06/24/22 10:53 06/24/22 07:53 06/24/22 10:53 06/24/22 11:00 General appearance: Present: no acute distress, well-nourished - EENT Eyes: Present: PERRL ENT: hearing intact, clear oral mucosa - Neck Neck: Present: supple, normal ROM - Respiratory Respiratory effort: normal Respiratory: bilateral: CTA - Cardiovascular Heart rate: 78 Rhythm: regular Heart Sounds: Present: S1 & S2. Absent: rub, click - Extremities Extremities: no ischemia, pulses intact, pulses symmetrical, No edema Peripheral Pulses: within normal limits - Abdominal General gastrointestinal: Present: soft, non-tender, non-distended, normal bowel sounds Male genitourinary: Present: normal - Rectal Rectal Exam: deferred - Integumentary Integumentary: Present: clear, warm, dry - Musculoskeletal Musculoskeletal: gait normal, strength equal bilaterally - Psychiatric Psychiatric: appropriate mood/affect, intact judgment & insight - Neurologic Neurologic: CNII-XII intact, moves all extremities - Allied Health Allied health notes reviewed: nursing, case management Plan Activity: no restrictions Diet: regular Durable Medical Equipment Needed Upon Discharge: Oxygen (2 L home oxygen with concentrator) Follow up with: PRIMARY CARE, [Primary Care Provider] - 7 Days
[2022-06-24] MEDS: REMDESIVIR 100 MG in SODIUM CHLORIDE 0.9% 250ML 250 ML IV SCH (14:40)
[2022-06-24] MEDS: SODIUM CHLORIDE 0.9% 50 ML IVPB IV SCH (14:40)
== END 2022-06-24 17:36 | disposition home or self-care (01) | DRG 871 ==
LOC: ED 13:28 → 3A 15:19
PROVIDERS: ADMIT Internal Medicine; ATTEND Internal Medicine
PROC: XW033E5 Introduction of Remdesivir Anti-infective into Peripheral Vein, Percutaneous Approach, New Technology Group 5 (ICD-10-PCS; principal; 2022-06-20)
DX: A41.9 Sepsis, unspecified organism (principal); E43 Unspecified severe protein-calorie malnutrition; U07.1 COVID-19; J96.01 Acute respiratory failure with hypoxia; I50.31 Acute diastolic (congestive) heart failure; J12.82 Pneumonia due to coronavirus disease 2019; E87.1 Hypo-osmolality and hyponatremia; J44.0 Chronic obstructive pulmonary disease with (acute) lower respiratory infection; F17.213 Nicotine dependence, cigarettes, with withdrawal; N17.9 Acute kidney failure, unspecified; Z68.1 Body mass index [BMI] 19.9 or less, adult; I11.0 Hypertensive heart disease with heart failure; I25.10 Atherosclerotic heart disease of native coronary artery without angina pectoris; Z95.5 Presence of coronary angioplasty implant and graft; I25.2 Old myocardial infarction; F01.50 Vascular dementia, unspecified severity, without behavioral disturbance, psychotic disturbance, mood disturbance, and anxiety; I67.2 Cerebral atherosclerosis; E87.5 Hyperkalemia; E87.6 Hypokalemia; Z88.8 Allergy status to other drugs, medicaments and biological substances; Z88.5 Allergy status to narcotic agent
CPT/HCPCS: 36415; 71045; 71275; 80048; 80053; 81001; 82140; 82728; 82947; 83615; 83735; 83880; 84145; 84439; 84443; 84484; 85007; 85025; 85379; 86140; 86850; 86900; 86901; 87040; 93005; 93306; 93970; 94640; 94760; G0378; C8929; J0456; J0696; J1100; J1644; J1940; J2920; J7030; J7050; J8540; Q9967; U0003